=== PATIENT | male | born 1945 | race Caucasian/White ===

== ENCOUNTER 2016-12-15 09:03 | Inpatient (IN) | payer MEDICARE, MEDICAID ==
[~2016-12-15] VITALS: Ht 172.7 cm; Wt 94.0 kg
[2016-12-15] VITALS (19 sets, daily range): BP systolic 163–190; BP diastolic 54–91; PULSE 84–90; RESP 18–20; TEMP 97.8; Ht 172.7 cm; Wt 94.0 kg
[~2016-12-15 09:03] MED LIST: AMLO5TAB4 PO; AZIT250T94 PO; CARV6.2579 PO; CNC30T PO; GABA100C14 PO; GLIM4TAB PO; LANT3I SC; LYRI100 PO; NOVO3I SC; OLAN5TAB5 PO; OMEP20CA16 PO; SEVE800T7 PO; TRAM-40 PO; ZOC20 PO; ZOLP5TAB6 PO
[2016-12-15] MEDS ORDERED: ONDANSETRON 4 MG INJ IV STA (09:56)
[2016-12-15] MEDS ORDERED: HYDROmorphONE 1 MG/ML SYG IV STA (09:56)
[2016-12-15 10:10] LABS: ADD SCAN DIFF NO
[2016-12-15 10:13] LABS: ABNORMAL IP MESSAGE 1; BASOPHILS % 0.1 % (0.0-2.0); EOSINOPHILS % 0.1 % (0.0-7.0); HEMATOCRIT 32.2 % (42.0-52.0); HEMOGLOBIN 10.6 g/dl (14.0-18.0); LYMPHOCYTES # 0.6 10^3/ul (0.8-2.9); LYMPHOCYTES % 4.8 % (15.0-51.0); MEAN CORPUSCULAR HEMOGLOBIN 31.6 pg (29.0-33.0); MEAN CORPUSCULAR HGB CONC 32.9 g/dl (32.0-37.0); MEAN CORPUSCULAR VOLUME 96.1 fl (82.0-101.0); MEAN PLATELET VOLUME 10.3 fl (7.4-10.4); MONOCYTE # 0.7 10^3/ul (0.3-0.9); NEUTROPHIL # 10.4 10^3/ul (1.6-7.5); NEUTROPHILS % 88.5 % (39.0-77.0); PLATELET COUNT 215 10^3/UL (140-415); RED BLOOD COUNT 3.35 10^6/ul (4.70-6.10); RED CELL DISTRIBUTION WIDTH 13.1 % (11.5-14.5); WHITE BLOOD COUNT 11.7 10^3/ul (4.8-10.8)
[2016-12-15 10:22] LABS: INR 1.05; PROTIME 13.7 Sec (12.2-14.2); PT RATIO 1.1
[2016-12-15 10:23] LABS: PARTIAL THROMBOPLASTIN TIME 30.7 Sec (25.0-35.0)
[2016-12-15 10:24] LABS: CREATININE 12.54 mg/dl (0.61-1.24)
[2016-12-15 10:25] LABS: CALCIUM 9.4 mg/dl (8.4-10.2); MAGNESIUM 3.1 mg/dl (1.7-2.5); PHOSPHORUS 4.7 mg/dl (2.5-4.9)
[2016-12-15 10:26] LABS: POTASSIUM 7.2 mmol/L (3.5-5.1)
--- NOTE | 2016-12-15 10:26 | RADRPT ---
PROCEDURE: XR Chest. CLINICAL INDICATION: Abdomen pain. Renal failure. TECHNIQUE: Single frontal view. COMPARISON: 09/03/2016. FINDINGS: The lungs are clear. The heart is enlarged. There is calcification in the aorta consistent with atherosclerosis. There is no pleural effusion. There is no pneumothorax. IMPRESSION: 1. Cardiomegaly and atherosclerosis. 2. Clear lungs. 3. No change from 09/03/2016. RPTAT: QQ .Chai Greenberg MD, MD Date Time Electronically viewed and signed by .Chai Greenberg MD, MD on 12/15/2016 10:25 .R/
[2016-12-15] MEDS ORDERED: NA BICARBONATE 8.4% 50 ML SYG IV STA (10:28)
[2016-12-15] MEDS ORDERED: CA GLUCONATE (GM) 10% 10ML INJ IV STA (10:28)
[2016-12-15] MEDS ORDERED: DEXTROSE 50% 50 ML SYRINGE IV STA (10:28)
[2016-12-15] MEDS ORDERED: NA POLYST SULFON 15 GM/60 ML BTL PO STA (10:28)
[2016-12-15] MEDS ORDERED: INSULIN REGULAR, HUMAN 100 UNIT/1 ML 3ML VIAL IV STA (10:28)
[2016-12-15] MEDS ORDERED: ONDANSETRON 4 MG INJ IV PRN ×2 (11:00→20:00)
[2016-12-15] MEDS ORDERED: ACETAMINOPHEN 325 MG TAB PO PRN ×2 (11:00→20:00)
--- NOTE | 2016-12-15 11:57 | ERA ---
ER Documentation Chief Complaint Date/Time DATE: 12/15/16 TIME: 11:54 Chief Complaint GEN LEG WEAKNESS FOR A FEW WEEKS. SENT BY DR FIORE FOR ADMISSION HPI 71-year-old male history of end-stage renal disease on dialysis. Last dialysis was Saturday. The patient presents with multiple weeks if not months of bilateral lower cavity cramping during dialysis. He states that his primary care physician sent him in for hospitalization. The patient could not receive dialysis today. Mild shortness of breath. No chest pain, no pleuritic pain. ROS All systems reviewed and are negative except as per history of present illness. Medications Home Meds Reported Medications Sevelamer Carbonate* (Renvela*) 800 Mg Tablet, 0.8 GM PO WITH MEALS, TAB 07/25/16 Pregabalin* (Lyrica*) 100 Mg Capsule, 100 MG PO DAILY, CAP 07/25/16 Cinacalcet* (Sensipar*) 30 Mg Tab, 30 MG PO DAILY, TAB 07/25/16 Insulin Aspart* (Novolog Insulin Pen*) 100 Unit/Ml Soln, 0 SC .SLIDING SCALE AC , EA WITH MEALS 07/25/16 Insulin Glargine* (Lantus*) 100 Unit/Ml Soln, 0 SC DAILY, #1 VIAL SLIDING SCALE SOMETIMES TWICE A DAY 07/25/16 Omeprazole* (Omeprazole*) 20 Mg Capsule.dr, 20 MG PO BID, #60 CAP 07/25/16 Glimepiride* (Glimepiride*) 4 Mg Tablet, 4 MG PO WITH BREAKFAST DINNE, TAB 07/25/16 Tramadol Hcl* (Ultram*) 50 Mg Tablet, 50 MG PO BID Y for PAIN, TAB 07/25/16 Gabapentin* (Gabapentin*) 100 Mg Capsule, 100 MG PO DAILY, #90 CAP 07/25/16 Zolpidem Tartrate* (Zolpidem Tartrate*) 5 Mg Tablet, 5 MG PO QHS Y for INSOMNIA , #30 TAB 07/25/16 Amlodipine Besylate* (Norvasc*) 5 Mg Tablet, 5 MG PO DAILY, TAB 07/25/16 Carvedilol* (Carvedilol*) 6.25 Mg Tablet, 6.25 MG PO QAM, TAB 04/12/15 Olanzapine* (Zyprexa*) 5 Mg Tablet, 5 MG PO DAILY, TAB 06/14/14 Simvastatin (Simvastatin) 20 Mg Tablet, 20 MG PO DAILY 06/23/11 Discontinued Scripts Azithromycin* (Zithromax*) 250 Mg Tablet, 250 MG PO DAILY for 4 Days, TAB Prov:CHRISTIANA BAIG MD 09/03/16 Allergies Allergies: Coded Allergies: ibuprofen (Verified Allergy, Unknown, 08/20/16) iodine (Verified Allergy, Unknown, 08/20/16) PMhx/Soc History of Surgery: No (Left fistula placement, Left pelvis reconstruction, Appendectomy) Anesthesia Reaction: No Hx Neurological Disorder: No Hx Respiratory Disorders: Yes (Asthma) Hx Cardiac Disorders: Yes (Hypertension) Hx Psychiatric Problems: No Hx Miscellaneous Medical Probl: Yes (DM Type 2) Hx Alcohol Use: No Hx Substance Use: No Hx Tobacco Use: No Smoking Status: Never smoker FmHx Family History: No diabetes Physical Exam Vitals Vital Signs Date Time Temp Pulse Resp B/P Pulse Ox O2 Delivery O2 Flow Rate FiO2 12/15/16 11:45 97.8 86 16 171/86 100 Room Air 12/15/16 11:19 97.7 83 16 183/82 100 Room Air 12/15/16 10:02 97.6 86 18 172/87 100 Room Air 12/15/16 09:11 98.8 89 20 191/81 98 Physical Exam General: Well developed, well nourished, no acute distress Head: Normocephalic, atraumatic. Eyes: Pupils equally reactive, EOM intact ENT: Moist mucous membranes Neck: Supple, no lymphadenopathy Respiratory: Lungs clear bilaterally, no distress Cardiovascular: RRR, no murmurs, rubs, or gallops Abdominal: Soft, non-tender, non-distended, no peritoneal signs : Deferred MSK: No edema, no unilateral swelling, 5/5 strength, left upper extremity AV fistula with good bruit and thrill Neurologic: Alert and oriented, moving all extremities, normal speech, no focal weakness, no cerebellar signs Skin: No rash Psych: Normal mood Result Diagram: 12/15/16 1005 12/15/16 1005 Results 24 hrs Laboratory Tests Test 12/15/16 10:05 Activated Partial Thromboplast Time 30.7Sec Anion Gap 27 Basophils # 0.010^3/ul Basophils % 0.1% Blood Urea Nitrogen 104mg/dl Calcium Level 9.4mg/dl Carbon Dioxide Level 23mmol/L Chloride Level 96mmol/L Creatinine 12.54mg/dl Eosinophils # 0.010^3/ul Eosinophils % 0.1% Glucose Level 184mg/dl Hematocrit 32.2% Hemoglobin 10.6g/dl INR International Normalized Ratio 1.05 Lymphocytes # 0.610^3/ul Lymphocytes % 4.8% Magnesium Level 3.1mg/dl Mean Corpuscular Hemoglobin 31.6pg Mean Corpuscular Hemoglobin Concent 32.9g/dl Mean Corpuscular Volume 96.1fl Mean Platelet Volume 10.3fl Monocytes # 0.710^3/ul Monocytes % 6.0% Neutrophils # 10.410^3/ul Neutrophils % 88.5% Nucleated Red Blood Cells # 0.010^3/ul Nucleated Red Blood Cells % 0.0/100WBC Phosphorus Level 4.7mg/dl Platelet Count 71984^3/UL Potassium Level 7.2mmol/L Prothrombin Time 13.7Sec Prothrombin Time Ratio 1.1 Red Blood Count 3.3510^6/ul Red Cell Distribution Width 13.1% Sodium Level 139mmol/L White Blood Count 11.710^3/ul Current Medications Medications (Trade) Dose Ordered Sig/Nicole Route PRN Reason Start Time Stop Time Status Last Admin Dose Admin Hydromorphone HCl (Dilaudid) 1 mg ONCE STAT IV 12/15/16 09:56 12/15/16 09:58 DC 12/15/16 10:25 Ondansetron HCl (Zofran Inj) 4 mg ONCE STAT IV 12/15/16 09:56 12/15/16 09:58 DC 12/15/16 10:25 Insulin Human Regular (Humulin R) 10 unit ONCE STAT IV 12/15/16 10:28 12/15/16 10:29 DC 12/15/16 10:50 Dextrose (D50w Syringe) 50 ml ONCE STAT IV 12/15/16 10:28 12/15/16 10:29 DC 12/15/16 10:48 Sodium Polystyrene Sulfonate (Kayexalate) 30 gm ONCE STAT PO 12/15/16 10:28 12/15/16 10:29 DC 12/15/16 10:48 Sodium Bicarbonate (Na Bicarb 8.4% Syg) 50 ml ONCE STAT IV 12/15/16 10:28 12/15/16 10:29 DC 12/15/16 10:48 Calcium Gluconate (Ca Gluc) 1 gm ONCE STAT IV 12/15/16 10:28 12/15/16 10:29 DC 12/15/16 10:48 Ondansetron HCl (Zofran Inj) 4 mg ER BRIDGE PRN IV NAUSEA AND/OR VOMITING 12/15/16 11:00 12/16/16 10:59 Acetaminophen (Tylenol Tab) 650 mg ER BRIDGE PRN PO MILD PAIN/FEVER 12/15/16 11:00 12/16/16 10:59 Procedures/MDM EKG, MONITORS, & DIAGNOSTIC IMAGING: EKG: I reviewed and interpreted a 12-lead EKG. Rhythm: Normal sinus rhythm Ectopy: None Intervals: No abnormalities ST segments: No elevations or depressions T waves: Peaked T waves Chest x-ray: I reviewed and interpreted a 1 view of the chest Mediastinum: No enlargement Cardiac silhouette: No cardiomegaly Airspace: Clear lung elam bilaterally without evidence of pneumothorax Bones: No evidence of fracture LAB INTERPRETATION: Uremia, hyperkalemia MEDICAL DECISION MAKING: The patient presents with lower extremity cramping. Cramping is likely secondary to electrolyte and fluid shifts. No evidence of DVT or acute vascular occlusion. Leg pain appears to be chronic. Bigger concern is that the patient has missed dialysis for several days. Strong concern for possible hyperkalemia. No evidence of overt volume overload. ER COURSE: Hyperkalemia with EKG changes are noted on laboratory testing and diagnostic imaging. Patient was given Kayexalate, insulin, dextrose, bicarb, calcium. Patient continues to be resting comfortably but requires emergent dialysis. I spoke to the patient's hod carrier who is currently arranging for that. Patient was given pain medication for leg pain. I kept the patient and/or family informed of laboratory and diagnostic imaging results throughout the emergency room course. DISPOSITION PLAN: Telemetry admission for management of hyperkalemia CONSULTATION: Accepting care team and consultations: I discussed the current laboratory data, diagnostic imaging and emergency care provided. Admitting team: Dr. Jose Fiore Admitting team indication: Insurance directed Critical Care Note: Total time: 42 minutes Indication/Organ System Threat: Hyperkalemia with EKG changes I spent the above amount of critical care time with the patient, not including billable procedures. This included chart review, consultations, repeat bedside evaluations, and titration of appropriate medications to prevent cardiopulmonary or respiratory collapse. Departure Diagnosis: Primary Impression: Hyperkalemia Additional Impressions: Uremia Leg cramping Qualified Code: R25.2 - Cramp of both lower extremities End stage renal disease on dialysis Condition: PAOLO Sommers MD Dec 15, 2016 11:57
[2016-12-15] MEDS ORDERED: GLUCOSE GEL 15 GRAM TUBE PO PRN ×2 (14:30)
[2016-12-15] MEDS ORDERED: GLUCOSE GEL 15 GRAM TUBE BUCCAL PRN (14:30)
[2016-12-15] MEDS ORDERED: DEXTROSE 50% 50 ML SYRINGE IV PRN ×2 (14:30)
[2016-12-15] MEDS ORDERED: GLUCAGON 1 MG INJ IM PRN (14:30)
[2016-12-15] MEDS: INSULIN ASPART [NOVOLOG] 3 ML PEN SC SCH ×2 (17:55→21:00)
[2016-12-15 18:51] LABS: CK-MB 3.33 ng/ml (0.0-2.4)
[2016-12-15 18:52] LABS: TROPONIN-I 0.04 ng/ml (0.00-0.12)
--- NOTE | 2016-12-15 19:31 | QN ---
Documentation Comment [id number] DAWOOD DAHL MD Dec 15, 2016 19:31
[2016-12-15] MEDS ORDERED: NACL 0.9% 3 ML SYG IV SCH (20:00)
[2016-12-15] MEDS ORDERED: DOCUSATE SODIUM 100 MG CAP PO PRN (20:00)
[2016-12-15] MEDS ORDERED: traMADol 50 MG TAB PO PRN (20:00)
[2016-12-15] MEDS: HYDROCODONE/APAP (5/325) TAB PO PRN (20:56)
--- NOTE | 2016-12-15 23:02 | CONS ---
Date/Time of Note Date/Time of Note DATE: 12/15/16 TIME: 22:44 Assessment/Plan Assessment/Plan Chief Complaint/Hosp Course 71 year old M with history of ESRD on dialysis, chronic LE pain and severe cramping post dialysis. -will pursue neuropathy work up B12, TSH, HBA1C -CTH w/o contrast for truncal ataxia -continue on Lyrica 100 mg daily, on days of dialysis give Lyrica 100 mg after dialysis as symptoms are worse at this time gabapentin 100 mg likely not benefiting him as the dose is too low, if unable to tolerate Lyrica will titrate up gabapentin -may benefit from outpatient EMG/NCV studies to further characterize neuropathy -PT evaluation for a walker, gait and balance training Problems: Consultation Date/Type/Reason Admit Date/Time Dec 15, 2016 at 12:39 Date of Consultation: Dec 15, 2016 Type of Consultation: Neurology Reason for Consultation LE cramping r/o neuropathy Referring Provider: DAWOOD DAHL MD Hx of Present Illness 71 year old M with history of ESRD on dialysis, uncontrolled diabetes, chronic LE weakness with recent worsening admitted with complaint of severe cramping after dialysis, frequent falls an diffuse weakness. He states cramping is severe every time he has dialysis, pain is mostly location in the thigh region on the right worse than the left. He denies any numbness or pain in his feet. In the past he has attempted Lyrica which alleviated the cramping and pain sensation, however he was unable to tolerate a dose of 150 mg daily due to adverse side effects and described cognitive issues with this dose. Per records he has been on gabapentin low dose 100 mg in the past, patient denies this, unclear compliance with neuropathic meds. He has never received an outpatient EMG/NCV study to further characterize neuropathy. He ambulates with a cane and is requesting a more supportive assistive device due to frequent fall due to severe loss of balance. pain in thighs difficulty ambulating loss of balance difficulty sleeping Respiratory: shortness of breath Gastrointestinal: no complaints Genitourinary: no complaints Musculoskeletal: bone/joint pain Past Medical History per HPI Social History Alcohol Use: none Smoking Status: Never smoker Drug Use: none Exam/Review of Systems Vital Signs Vitals Vital Signs Date Time Temp Pulse Resp B/P Pulse Ox O2 Delivery O2 Flow Rate FiO2 12/15/16 20:35 85 12/15/16 19:28 97.6 18 163/84 99 12/15/16 12:29 Room Air Exam awake and alert appears stated age NAD following commands no aphasia no neglect CN: BRET , VFF, EOMI no nystagmus no facial asymmetry palate upgoing uvula midline scm/trap intact, tongue midline Motor: strength 5/5 throughout some limitation in hip flexion and extension due to reported pain when full effort provided strength is full, tremulous in both UE Tone wnl Sensory increased to PP sensation, absent vibratory sensation at toes and knee intact LT sensory Reflexes 1+ UE absent KJ absent AJ toes downgoing Coordination no FTN ataxia however when eyes are closed he has significant truncal ataxia loss of proprioception Constitutional: alert, oriented, well developed Psych: anxiety Head: atraumatic, normocephalic Results Result Diagram: 12/15/16 1005 12/15/16 1818 Results 24 hrs Laboratory Tests Test 12/15/16 10:05 12/15/16 17:20 12/15/16 18:05 12/15/16 18:18 Activated Partial Thromboplast Time 30.7 Anion Gap 27 H Basophils # 0.0 Basophils % 0.1 Blood Urea Nitrogen 104 H Calcium Level 9.4 Carbon Dioxide Level 23 Chloride Level 96 L Creatinine 12.54 H Eosinophils # 0.0 Eosinophils % 0.1 Glucose Level 184 Hematocrit 32.2 L Hemoglobin 10.6 L INR International Normalized Ratio 1.05 Lymphocytes # 0.6 L Lymphocytes % 4.8 L Magnesium Level 3.1 H Mean Corpuscular Hemoglobin 31.6 Mean Corpuscular Hemoglobin Concent 32.9 Mean Corpuscular Volume 96.1 Mean Platelet Volume 10.3 Monocytes # 0.7 Monocytes % 6.0 Neutrophils # 10.4 H Neutrophils % 88.5 H Nucleated Red Blood Cells # 0.0 Nucleated Red Blood Cells % 0.0 Phosphorus Level 4.7 Platelet Count 215 Potassium Level 7.2 *H 5.0 # Prothrombin Time 13.7 Prothrombin Time Ratio 1.1 Red Blood Count 3.35 L Red Cell Distribution Width 13.1 Sodium Level 139 White Blood Count 11.7 #H Bedside Glucose 59 L 90 Creatine Kinase 493 H Creatine Kinase Index 0.7 Creatinine Kinase MB (Mass) 3.33 H Troponin I 0.040 Test 12/15/16 18:41 12/15/16 21:00 Bedside Glucose 149 180 Medications Medications Current Medications Diagnostic Test (Pha) (Accucheck) 1 ea 02 XX ; Start 12/16/16 at 02:00 Pantoprazole (Protonix Iv) 40 mg DAILY@06 IV ; Start 12/16/16 at 06:00 Miscellaneous Information 1 ea NOTE XX ; Start 12/15/16 at 14:30 Glucose (Glutose) 15 gm Q15M PRN PO DECREASED GLUCOSE; Start 12/15/16 at 14:30 Glucose (Glutose) 22.5 gm Q15M PRN PO DECREASED GLUCOSE; Start 12/15/16 at 14: 30 Dextrose (D50w Syringe) 25 ml Q15M PRN IV DECREASED GLUCOSE; Start 12/15/16 at 14:30 Dextrose (D50w Syringe) 50 ml Q15M PRN IV DECREASED GLUCOSE; Start 12/15/16 at 14:30 Glucagon (Glucagen) 1 mg Q15M PRN IM DECREASED GLUCOSE; Start 12/15/16 at 14:30 Glucose (Glutose) 15 gm Q15M PRN BUCCAL DECREASED GLUCOSE; Start 12/15/16 at 14 :30 Carvedilol (Coreg) 6.25 mg BID PO Last administered on 12/15/16t 20:52; Admin Dose 6.25 MG; Start 12/15/16 at 21:00 Amlodipine Besylate (Norvasc) 5 mg DAILY PO ; Start 12/16/16 at 09:00 Cinacalcet (Sensipar) 30 mg DAILY PO ; Start 12/16/16 at 09:00 Gabapentin (Neurontin) 100 mg DAILY PO ; Start 12/16/16 at 09:00 Olanzapine (Zyprexa) 5 mg DAILY PO ; Start 12/16/16 at 09:00 Tramadol HCl (Ultram) 50 mg BID PRN PO PAIN; Start 12/15/16 at 20:00 Zolpidem Tartrate (Ambien) 5 mg QHS PRN PO INSOMNIA; Start 12/15/16 at 20:00 Ondansetron HCl (Zofran Inj) 4 mg Q6H PRN IV NAUSEA AND/OR VOMITING; Start 08/23 at 20:00 Acetaminophen (Tylenol Tab) 650 mg Q6H PRN PO PAIN LEVEL 1-3 OR FEVER; Start at 20:00 Acetaminophen/ Hydrocodone Bitart (Wendell (5/325)) 1 tab Q6H PRN PO MODERATE PAIN LEVEL 4-6 Last administered on 12/15/16t 20:56; Admin Dose 1 TAB; Start 08/23 at 20:00 Docusate Sodium (Colace) 100 mg Q12H PRN PO CONSTIPATION; Start 12/15/16 at 20: 00 Pregabalin (Lyrica) 100 mg DAILY PO ; Start 12/16/16 at 09:00 DENYS WORTHY MD Dec 15, 2016 22:54
[2016-12-16] VITALS (12 sets, daily range): BP systolic 128–166; BP diastolic 64–80; PULSE 71–82; RESP 19–20
[2016-12-16] MEDS: ZOLPIDEM 5 MG TAB PO PRN (00:38)
[2016-12-16 01:49] LABS: TROPONIN-I 0.081 ng/ml (0.00-0.12)
[2016-12-16] MEDS: ACCUCHECK XX SCH (02:00)
[2016-12-16 03:00] LABS: CK-MB 2.83 ng/ml (0.0-2.4)
--- NOTE | 2016-12-16 04:22 | CONS ---
DATE OF ADMISSION: 12/15/2016 DATE OF CONSULTATION: 12/15/2016 REASON FOR CONSULTATION: Shortness of breath, assess for congestive heart failure as well as abnorm al electrocardiogram, assess for acute coronary syndrome. REQUESTING PHYSICIAN: Dr. Jose Dahl. HISTORY OF PRESENT ILLNESS: Mr. Armand Irene is a very pleasant 71-year-old male with a history of hy pertension, diabetes mellitus, end-stage renal disease, dyslipidemia who initially presented with co mplaints of shortness of breath, generalized weakness. Upon arrival in the emergency department, te mperature 98.8, blood pressure 191/81, pulse 89, respiratory rate 20, saturating 98%. The patient's labs revealed a white blood cell count 11.7, hemoglobin 10.6, platelet count of 215. Sodium 139, p otassium 7.2, creatinine 12.5, BUN 104, magnesium 3.1. INR 1.0. The patient underwent a chest x-ra y revealing cardiomegaly, clear lungs. The patient's electrocardiogram was sinus rhythm and a rate of 82 with right axis deviation and inferior T-wave flattening. The patient was subsequently admitt ed to the floor. Since admit to floor, has undergone hemodialysis with improvement in shortness of breath. PAST MEDICAL HISTORY: As above in HPI. MEDICATIONS CURRENTLY IN HOSPITAL: 1. Protonix 40 mg IV daily. 2. Insulin sliding scale. ALLERGIES: 1. IBUPROFEN. 2. IODINE. SOCIAL HISTORY: No tobacco, ETOH or illicit drug use. FAMILY HISTORY: No history of sudden cardiac or early CAD. REVIEW OF SYSTEMS: As above in HPI. CONSTITUTIONAL: No fevers, chills. PULMONARY: Shortness of breath. CARDIOVASCULAR: Abnormal electrocardiogram, shortness of breath. GASTROINTESTINAL: No vomiting. GENITOURINARY: End-stage renal disease. PSYCHIATRIC: The patient denies depression. NEUROLOGIC: No documented history of CVA. ENDOCRINE: Diabetes mellitus. PHYSICAL EXAMINATION: VITAL SIGNS: Temperature 98, blood pressure 176/80, pulse 88, respiratory 18, sat 98%. GENERAL: Patient is alert, awake, in no acute distress. NECK: JVP approximately 9 cm water. CHEST: Fair air movement throughout. HEART: Regular rate and rhythm. Normal S1, S2, I/ systolic murmur, nondisplaced PMI. ABDOMEN: Positive bowel sounds, soft. EXTREMITIES: Trace edema, 1+ pulses bilaterally posterior tibial. LABORATORY DATA: As above in HPI. No further labs for my review at this time. IMAGING STUDIES: As above in HPI. No further imaging studies for my review at this time. ECG: As above in HPI. No further electrocardiograms for my review at this time. IMPRESSION: 1. Abnormal electrocardiogram, assess for acute coronary syndrome. 2. Shortness of breath, assess for congestive heart failure. 3. Hypertension, uncontrolled. 4. Dyslipidemia. 5. End-stage renal disease on hemodialysis. 6. Generalized weakness, now improved, likely secondary to hyperkalemia. 7. Hyperkalemia, status post hemodialysis. 8. Leukocytosis. 9. Anemia. RECOMMENDATIONS: 1. At this time would maintain patient on telemetry monitoring to follow rhythm and rate closely. 2. Will complete a rule out for myocardial infarction to ensure that the patient's EKG abnormalitie s are chronic in nature and not due to any recent acute coronary syndrome such as acute myocardial i nfarction thus will resume the patient's baseline antihypertensives with carvedilol and Norvasc. 3. Check a 2D echo to further assess patient's ejection fraction, wall motion and any major valve a bnormalities. 4. Check fasting lipid panel for general risk stratification and adjust the patient's statin therap y as necessary. Recheck the patient's potassium post-hemodialysis to ensure that it appropriately d own trended. 5. Continue patient's insulin sliding scale for control of diabetes and follow blood sugars closely . Thank you for allowing me to take part in the care of this patient. I will continue to follow along very closely with you with further recommendations to be made as the patient progresses through his inpatient hospital clinical course. Dictated By: MY PATEL/EDEL Conf#: [id number] DID#: [id number] CC: JOSE DAHL MD;*EndCC*
--- NOTE | 2016-12-16 04:51 | HP ---
DATE OF ADMISSION: 12/15/2016 HISTORY OF PRESENT ILLNESS: The patient is a 71-year-old male with history of hypertension, history of diabetes mellitus, dyslipidemia, neuropathy, chronic leg edema, and noncompliance with his medic ation who presented to this hospital complaining of short of breath, missed dialysis, hyperkalemia. The patient was treated medically for the patient's potassium of 7.2, underwent hemodialysis, and i s being admitted for further management. Denies any chest pain. PAST MEDICAL HISTORY: Positive for hypertension, diabetes mellitus, dyslipidemia, history of memory impairment. ALLERGY HISTORY: 1. IBUPROFEN. 2. IODINE. SOCIAL HISTORY: Negative. FAMILY HISTORY: Noncontributory. MEDICATION HISTORY: The patient is on 1. Amlodipine. 2. Coreg. 3. Sensipar. 4. Gabapentin. 5. Amaryl. 6. Insulin. 7. Lantus. 8. Zyprexa. 9. Omeprazole. 10. Pregabalin. 11. Renvela. 12. Simvastatin. 13. Tramadol 14. Ambien. REVIEW OF SYSTEMS HEENT: Unremarkable. RESPIRATORY: Shortness of breath. CARDIOVASCULAR: No chest pain. No palpitations. ABDOMEN: ____ extremity swelling and also neuropathic pain, restlessness. CENTRAL NERVOUS SYSTEM: Unremarkable. PHYSICAL EXAMINATION: GENERAL: The patient is awake and alert. VITAL SIGNS: Pulse 80, blood pressure 176/80. HEAD: Atraumatic, normocephalic. Pupils equal, reactive to light. NECK: Supple, no JVD. LUNGS: Clear. CARDIOVASCULAR: S1, S2 are normal. ABDOMEN: Soft, nontender. Bowel sounds present. No palpable mass. EXTREMITIES: There is no cyanosis, clubbing. Edema positive. CENTRAL NERVOUS SYSTEM: The patient is awake, alert with no focal deficit. LABORATORY DATA: As mentioned above, potassium 7.2. The patient has WBC 11.7, hematocrit 32.2, allie telet count of 205. Chest x-ray shows the patient has cardiomegaly, atherosclerosis, clear lungs. At this point, the patient also had rhythm on the monitor, normal sinus rhythm, nonspecific ST-T dung nges. IMPRESSION: 1. Hyperkalemia. 2. Anasarca. 3. Diabetes mellitus. 4. Hypertension. 5. Anemia. 6. Leukocytosis. 7. Noncompliance with medication and fluid intake. PLAN: To continue home medication, IV. The patient will have hemodialysis, diabetic renal diet, sl iding scale. Orders were done. Dictated By: DAWOOD DAHL MD BS/NTS Conf#: [id number] DID#: [id number]
[2016-12-16] MEDS ORDERED: PANTOPRAZOLE 40 MG INJ IV SCH (06:00)
[2016-12-16 06:05] LABS: ADD SCAN DIFF NO
[2016-12-16 06:07] LABS: BASOPHIL # 0.1 10^3/ul (0.0-0.1); BASOPHILS % 0.7 % (0.0-2.0); EOSINOPHILS # 0.3 10^3/ul (0.0-0.5); EOSINOPHILS % 2.8 % (0.0-7.0); HEMATOCRIT 34.3 % (42.0-52.0); LYMPHOCYTES # 1.4 10^3/ul (0.8-2.9); LYMPHOCYTES % 15.2 % (15.0-51.0); MEAN CORPUSCULAR HEMOGLOBIN 31.3 pg (29.0-33.0); MEAN CORPUSCULAR HGB CONC 32.1 g/dl (32.0-37.0); MEAN CORPUSCULAR VOLUME 97.4 fl (82.0-101.0); MEAN PLATELET VOLUME 10.8 fl (7.4-10.4); MONOCYTE # 0.9 10^3/ul (0.3-0.9); MONOCYTES % 10.1 % (0.0-11.0); NEUTROPHIL # 6.5 10^3/ul (1.6-7.5); NEUTROPHILS % 70.7 % (39.0-77.0); PLATELET COUNT 259 10^3/UL (140-415); RED BLOOD COUNT 3.52 10^6/ul (4.70-6.10); RED CELL DISTRIBUTION WIDTH 13.2 % (11.5-14.5); WHITE BLOOD COUNT 9.1 10^3/ul (4.8-10.8)
[2016-12-16 06:19] LABS: ALBUMIN 4.4 g/dl (3.3-4.9)
[2016-12-16 06:21] LABS: CREATININE 9.16 mg/dl (0.61-1.24)
[2016-12-16 06:22] LABS: ALBUMIN/GLOBULIN RATIO 1.51; BILIRUBIN,INDIRECT 0.3 mg/dl (0-1.1); BILIRUBIN,TOTAL 0.3 mg/dl (0.2-1.3); CALCIUM 8.8 mg/dl (8.4-10.2); TOTAL PROTEIN 7.3 g/dl (6.1-8.1)
[2016-12-16 06:57] LABS: CHOL/HDL RATIO 2.6 RATIO
[2016-12-16] MEDS: INSULIN ASPART [NOVOLOG] 3 ML PEN SC SCH ×4 (07:55→20:16)
[2016-12-16] MEDS: CINACALCET 30 MG TAB PO SCH (08:27)
[2016-12-16] MEDS: SEVELAMER CARBONATE 0.8 GM PKT PO SCH ×3 (08:27→17:57)
[2016-12-16] MEDS: OLANZAPINE 5 MG TAB PO SCH (08:28)
[2016-12-16] MEDS ORDERED: AMLODIPINE 5 MG TAB PO SCH ×2 (09:00)
[2016-12-16] MEDS ORDERED: PREGABALIN 100 MG CAP PO SCH (09:00)
[2016-12-16] MEDS ORDERED: PREGABALIN 25 MG CAP PO SCH (09:00)
[2016-12-16] MEDS ORDERED: GABAPENTIN 100 MG CAP PO SCH (09:00)
--- NOTE | 2016-12-16 10:12 | RADRPT ---
PROCEDURE: CT Brain without. CLINICAL INDICATION: Ataxia, frequent falls, diffuse weakness. TECHNIQUE: A CT of the brain was performed on multidetector high-resolution CT scanner utilizing a xial sections from the skull base through the vertex without contrast. The scan was reviewed in sof t tissue brain and high frequency resolution bone algorithm windows. Images were reviewed on a high -resolution PACS workstation. One or more the following does reduction techniques were utilized: Aut omated exposure control, adjustment of the mA/ or kV according to patient's size, or use of iterativ e reconstruction technique. The exam CTDI = 44.77 mGy and the DLP = 720.23 mGy-cm. COMPARISON: Brain CT 04/12/2015. FINDINGS: The ventricles and sulci are mildly prominent indicative of volume loss. There is no intracranial he morrhage, mass effect or midline shift. No abnormal intra-axial or extra-axial fluid collections are seen. The parnell/white matter differentiation is well preserved. There are mild scattered foci of hypoattenuation in the periventricular, deep, and subcortical white matter, which are nonspecific in etiology but likely reflect chronic small vessel ischemic changes. There are mild intracranial vascular calcifications consistent with atherosclerosis. The visualized paranasal sinuses demonstrate near complete opacification of left posterior ethmoid air cells with associated fluid level. The mastoid air cells are essentially clear. There is thinning of bilateral lens indicative of prior lens replacement. Left parietal scalp swelling is noted without underlying skull fracture. IMPRESSION: 1. No acute intracranial hemorrhage, transcortical infarction or mass effect. 2. Mild intracranial atherosclerosis and chronic small vessel ischemic changes. 3. Mild cerebral and cerebellar volume loss. 4. Near complete opacification of left posterior ethmoid air cells with slight interval progression and associated fluid level. 5. Left parietal scalp swelling is noted without underlying skull fracture. RPTAT: PP .Shannon Price MD, MD Date Time Electronically viewed and signed by .Shannon Price MD, MD on 12/16/2016 10:12 .N/
--- NOTE | 2016-12-16 15:19 | CONS ---
Date/Time of Note Date/Time of Note DATE: 12/16/16 TIME: 15:15 Assessment/Plan Assessment/Plan Chief Complaint/Hosp Course IMPRESSION: 1. Abnormal electrocardiogram, assess for acute coronary syndrome.-negative troponin x 2 2. Shortness of breath, assess for congestive heart failure. 3. Hypertension, remains uncontrolled. 4. Dyslipidemia. 5. End-stage renal disease on hemodialysis. 6. Generalized weakness, now improved, likely secondary to hyperkalemia. 7. Hyperkalemia, status post hemodialysis. 8. Leukocytosis. 9. Anemia. Recc: -Tele -Complete marguerite with final troponin -Uptitrate norvasc and continue coreg to improve BP control -HD for volume removal -Will f/u echo to assess EF Problems: Consultation Date/Type/Reason Admit Date/Time Dec 15, 2016 at 12:39 Initial Consult Date 12/15/16 Type of Consultation: Cardiology Reason for Consultation CHF/HTN Referring Provider: DAWOOD DAHL MD Exam/Review of Systems Vital Signs Vitals Vital Signs Date Time Temp Pulse Resp B/P Pulse Ox O2 Delivery O2 Flow Rate FiO2 12/16/16 12:14 81 12/16/16 11:05 98.2 19 162/80 97 12/16/16 04:45 Room Air Intake and Output 12/15/16 12/15/16 12/16/16 15:00 23:00 07:00 Intake Total 500 ml Output Total 3500 ml Balance -3000 ml Exam Review of Systems: CONSTITUTIONAL: No fevers, chills. PULMONARY: mild sob CARDIOVASCULAR: No chest pain/palpitations GASTROINTESTINAL: No nausea/vomiting. GENITOURINARY: No hematuria/dysuria. MUSCULOSKELETAL: No myagias/arthalgias. PSYCHIATRIC: The patient denies depression. NEUROLOGIC: No weakness Constitutional: alert Psych: no complaints Head: normocephalic ENMT: mucosa pink and moist Neck: jvd (9 cm water), supple Respiratory: diminished breath sounds (at bases/B) Cardiovascular: regular rate and rhythm Gastrointestinal: non-tender, soft Musculoskeletal: muscle tone (normal) Extremities: edema (trace/B) Neurological: other (No focal deficits) Results Result Diagram: 12/16/16 0515 12/16/16 0515 Results 24 hrs Laboratory Tests Test 12/15/16 17:20 12/15/16 18:05 12/15/16 18:18 12/15/16 18:41 Bedside Glucose 59 L 90 149 Creatine Kinase 493 H Creatine Kinase Index 0.7 Creatinine Kinase MB (Mass) 3.33 H Potassium Level 5.0 # Troponin I 0.040 Test 12/15/16 21:00 12/16/16 00:23 12/16/16 05:15 12/16/16 07:06 Bedside Glucose 180 52 L Creatine Kinase 475 H Creatine Kinase Index 0.6 Creatinine Kinase MB (Mass) 2.83 H Troponin I 0.081 Alanine Aminotransferase (ALT/SGPT) 30 Albumin 4.4 Albumin/Globulin Ratio 1.51 Alkaline Phosphatase 146 H Anion Gap 24 H Aspartate Amino Transf (AST/SGOT) 26 Basophils # 0.1 Basophils % 0.7 Blood Urea Nitrogen 66 #H Calcium Level 8.8 Carbon Dioxide Level 29 Chloride Level 95 L Cholesterol Level 96 L Cholesterol/HDL Ratio 2.6 Creatinine 9.16 #H Direct Bilirubin 0.00 Eosinophils # 0.3 Eosinophils % 2.8 Globulin 2.90 Glucose Level 39 #*L HDL Cholesterol 36 Hematocrit 34.3 L Hemoglobin 11.0 L Hemoglobin A1c 7.2 H Indirect Bilirubin 0.3 LDL Cholesterol, Calculated 36 Lymphocytes # 1.4 Lymphocytes % 15.2 Mean Corpuscular Hemoglobin 31.3 Mean Corpuscular Hemoglobin Concent 32.1 Mean Corpuscular Volume 97.4 Mean Platelet Volume 10.8 H Monocytes # 0.9 Monocytes % 10.1 Neutrophils # 6.5 Neutrophils % 70.7 Nucleated Red Blood Cells # 0.0 Nucleated Red Blood Cells % 0.0 Platelet Count 259 # Potassium Level 5.0 Red Blood Count 3.52 L Red Cell Distribution Width 13.2 Sodium Level 143 Thyroid Stimulating Hormone (TSH) 5.130 H Total Bilirubin 0.3 Total Protein 7.3 Triglycerides Level 121 Vitamin B12 Level > 1000 H White Blood Count 9.1 # Test 12/16/16 07:28 12/16/16 07:46 12/16/16 08:37 12/16/16 11:25 Bedside Glucose 61 L 72 112 182 Medications Medications Current Medications Diagnostic Test (Pha) (Accucheck) 1 ea 02 XX ; Start 12/16/16 at 02:00 Pantoprazole (Protonix Iv) 40 mg DAILY@06 IV Last administered on 12/16/16t 06: 08; Admin Dose 40 MG; Start 12/16/16 at 06:00 Miscellaneous Information 1 ea NOTE XX ; Start 12/15/16 at 14:30 Glucose (Glutose) 15 gm Q15M PRN PO DECREASED GLUCOSE; Start 12/15/16 at 14:30 Glucose (Glutose) 22.5 gm Q15M PRN PO DECREASED GLUCOSE; Start 12/15/16 at 14: 30 Dextrose (D50w Syringe) 25 ml Q15M PRN IV DECREASED GLUCOSE; Start 12/15/16 at 14:30 Dextrose (D50w Syringe) 50 ml Q15M PRN IV DECREASED GLUCOSE; Start 12/15/16 at 14:30 Glucagon (Glucagen) 1 mg Q15M PRN IM DECREASED GLUCOSE; Start 12/15/16 at 14:30 Glucose (Glutose) 15 gm Q15M PRN BUCCAL DECREASED GLUCOSE; Start 12/15/16 at 14 :30 Carvedilol (Coreg) 6.25 mg BID PO Last administered on 12/16/16 08:28; Admin Dose 6.25 MG; Start 12/15/16 at 21:00 Amlodipine Besylate (Norvasc) 5 mg DAILY PO Last administered on 12/16/16 08: 29; Admin Dose 5 MG; Start 12/16/16 at 09:00 Cinacalcet (Sensipar) 30 mg DAILY PO Last administered on 12/16/16 08:27; Admin Dose 30 MG; Start 12/16/16 at 09:00 Olanzapine (Zyprexa) 5 mg DAILY PO Last administered on 12/16/16 08:28; Admin Dose 5 MG; Start 12/16/16 at 09:00 Tramadol HCl (Ultram) 50 mg BID PRN PO PAIN; Start 12/15/16 at 20:00 Zolpidem Tartrate (Ambien) 5 mg QHS PRN PO INSOMNIA Last administered on 00:38; Admin Dose 5 MG; Start 12/15/16 at 20:00 Ondansetron HCl (Zofran Inj) 4 mg Q6H PRN IV NAUSEA AND/OR VOMITING; Start 08/23 at 20:00 Acetaminophen (Tylenol Tab) 650 mg Q6H PRN PO PAIN LEVEL 1-3 OR FEVER; Start at 20:00 Acetaminophen/ Hydrocodone Bitart ([place] (5/325)) 1 tab Q6H PRN PO MODERATE PAIN LEVEL 4-6 Last administered on 12/15/16t 20:56; Admin Dose 1 TAB; Start 08/23 at 20:00 Docusate Sodium (Colace) 100 mg Q12H PRN PO CONSTIPATION; Start 12/15/16 at 20: 00 MY MENDEZ 12, 2017 15:19
--- NOTE | 2016-12-16 16:09 | RADRPT ---
Echocardiogram Report Patient Name: MICHAEL GUTHRIE Gender: Male Date: 1945 Study Date: 16-Dec-2016 Computer Security Coordinator: [facility] Location: [id number] Ref. Physician: MY ROGERS Quality: Good Procedures: Transthoracic echocardiogram with complete 2D, M-Mode, and doppler examination. Indications: Congential Heart Disease. 2D/M Mode Doppler Measurement Value Normal Ranges Measurement Value Normal Ranges LVIDd 2D 5.3 3.5 - 5.6 cm AV Peak Abdirahman 1.6 m/sec LVIDs 2D 3.5 2.1 - 4.1 cm AV Peak PG 11.0 mmHg FS 2D 34.8 % AI Peak PG 17.0 mmHg LVPWd 2D 1.3 0.6 - 1.1 cm AI Peak Abdirahman 2.1 m/sec IVSd 2D 1.2 0.6 - 1.1 cm AI PHT 613.0 msec IVS/LVPW 2D 1.0 LVOT Peak Abdirahman 1.0 m/sec AoR Diam 2D 3.0 2.0 - 3.7 cm LVOT Peak PG 4.0 mmHg LA/Ao 2D 2 0 - 1 MV E Peak Abdirahman 1.3 m/sec EDV 2D 153.0 cm3 MV A Peak Abdirahman 0.9 m/sec ESV 2D 42.5 cm3 MV E/A 1.5 LA Dimen 2D 4.8 2.3 - 4.0 cm MV Decel Time 204 msec MV E/A 1.5 MR Peak PG 62.0 mmHg MR Peak Abdirahman 3.9 m/sec TR Peak Abdirahman 3.3 m/sec TR Peak PG 43.0 mmHg Findings Left Ventricle: Normal left ventricular systolic function. Normal left ventricular cavity size. Left ventricular wall thickness upper limits of normal. Ejection fraction is visually estimated at 55 %. Tissue Doppler/Mitral Doppler indices are consistent with impaired relaxation (Stage I diastolic dysfunction). Right Ventricle: Normal right ventricular size. Normal right ventricular systolic function. Left Atrium: There is mild enlargement of left atrium. Right Atrium: The right atrium is normal in size. Mitral Valve: Mild mitral leaflet calcification. Moderate to severe mitral valve regurgitation. Aortic Valve: Trileaflet aortic valve. Mild aortic valve regurgitation. Tricuspid Valve: Estimated peak PA systolic pressure 64 mmHg. There is trace to mild tricuspid regurgitation. Pulmonic Valve: Normal pulmonic valve appearance. Pericardium: Normal pericardium with no significant pericardial effusion. Aorta: Normal aortic root. IVC: Dilated IVC with respiratory collapse consistent with elevated right atrial pressure. Conclusions 1.Normal left ventricular systolic function. Normal left ventricular cavity size. Left ventricular wall thickness upper limits of normal. Ejection fraction is visually estimated at 55 %. Tissue Doppler/Mitral Doppler indices are consistent with impaired relaxation (Stage I diastolic dysfunction). 2.There is mild enlargement of left atrium. 3.Mild mitral leaflet calcification. Moderate to severe mitral valve regurgitation. 4.Trileaflet aortic valve. Mild aortic valve regurgitation. 5.Estimated peak PA systolic pressure 64 mmHg. There is trace to mild tricuspid regurgitation. Electronically Signed By: My Rogers 16-Dec-2016 16:08:02 -0700 Patient Name: MICHAEL GUTHRIE Study Date: 16-Dec-2016 [id number]
--- NOTE | 2016-12-16 16:10 | RADRPT ---
Vent Rate: 74 bpm RR Interval: 0 msec CA Interval: 170 msec QRS Duration: 96 msec QT Interval: 432 msec QTC Interval: 479 msec P-R-T [place]: 31 - 107 - 24 degrees Normal sinus rhythm Rightward axis Borderline ECG Electronically Signed By: Greg Rogers [id number]
--- NOTE | 2016-12-16 16:52 | PN ---
Date/Time of Note Date/Time of Note DATE: 12/16/16 TIME: 16:51 Assessment/Plan VTE Prophylaxis VTE Prophylaxis Intervention: other Lines/Catheters IV Catheter Type (from Nrs): Saline Lock Urinary Cath still in place: No Assessment/Plan Chief Complaint/Hosp Course IMPRESSION: 1. Hyperkalemia. 2. Anasarca. 3. Diabetes mellitus. 4. Hypertension. 5. Anemia. 6. Leukocytosis. 7. Noncompliance with medication and fluid intake. PLAN US LEGS HD AM Problems: Subjective 24 Hr Interval Summary Respiratory: no complaints Cardiovascular: no complaints Musculoskeletal: other (LEGS PAIN) Exam/Review of Systems Vital Signs Vitals Vital Signs Date Time Temp Pulse Resp B/P Pulse Ox O2 Delivery O2 Flow Rate FiO2 12/16/16 15:26 97.5 77 19 164/75 98 12/16/16 04:45 Room Air Intake and Output 12/15/16 12/15/16 12/16/16 15:00 23:00 07:00 Intake Total 500 ml Output Total 3500 ml Balance -3000 ml Exam Respiratory: clear to auscultation Cardiovascular: regular rate and rhythm Gastrointestinal: bowel sounds (+), soft Extremities: edema (++) Results Result Diagram: 12/16/16 0515 12/16/16 0515 Results 24 hrs Laboratory Tests Test 12/15/16 17:20 12/15/16 18:05 12/15/16 18:18 12/15/16 18:41 Bedside Glucose 59 L 90 149 Creatine Kinase 493 H Creatine Kinase Index 0.7 Creatinine Kinase MB (Mass) 3.33 H Potassium Level 5.0 # Troponin I 0.040 Test 12/15/16 21:00 12/16/16 00:23 12/16/16 05:15 12/16/16 07:06 Bedside Glucose 180 52 L Creatine Kinase 475 H Creatine Kinase Index 0.6 Creatinine Kinase MB (Mass) 2.83 H Troponin I 0.081 Alanine Aminotransferase (ALT/SGPT) 30 Albumin 4.4 Albumin/Globulin Ratio 1.51 Alkaline Phosphatase 146 H Anion Gap 24 H Aspartate Amino Transf (AST/SGOT) 26 Basophils # 0.1 Basophils % 0.7 Blood Urea Nitrogen 66 #H Calcium Level 8.8 Carbon Dioxide Level 29 Chloride Level 95 L Cholesterol Level 96 L Cholesterol/HDL Ratio 2.6 Creatinine 9.16 #H Direct Bilirubin 0.00 Eosinophils # 0.3 Eosinophils % 2.8 Globulin 2.90 Glucose Level 39 #*L HDL Cholesterol 36 Hematocrit 34.3 L Hemoglobin 11.0 L Hemoglobin A1c 7.2 H Indirect Bilirubin 0.3 LDL Cholesterol, Calculated 36 Lymphocytes # 1.4 Lymphocytes % 15.2 Mean Corpuscular Hemoglobin 31.3 Mean Corpuscular Hemoglobin Concent 32.1 Mean Corpuscular Volume 97.4 Mean Platelet Volume 10.8 H Monocytes # 0.9 Monocytes % 10.1 Neutrophils # 6.5 Neutrophils % 70.7 Nucleated Red Blood Cells # 0.0 Nucleated Red Blood Cells % 0.0 Platelet Count 259 # Potassium Level 5.0 Red Blood Count 3.52 L Red Cell Distribution Width 13.2 Sodium Level 143 Thyroid Stimulating Hormone (TSH) 5.130 H Total Bilirubin 0.3 Total Protein 7.3 Triglycerides Level 121 Vitamin B12 Level > 1000 H White Blood Count 9.1 # Test 12/16/16 07:28 12/16/16 07:46 12/16/16 08:37 12/16/16 11:25 Bedside Glucose 61 L 72 112 182 Medications Medications Current Medications Diagnostic Test (Pha) (Accucheck) 1 ea 02 XX ; Start 12/16/16 at 02:00 Pantoprazole (Protonix Iv) 40 mg DAILY@06 IV Last administered on 12/16/16t 06: 08; Admin Dose 40 MG; Start 12/16/16 at 06:00 Miscellaneous Information 1 ea NOTE XX ; Start 12/15/16 at 14:30 Glucose (Glutose) 15 gm Q15M PRN PO DECREASED GLUCOSE; Start 12/15/16 at 14:30 Glucose (Glutose) 22.5 gm Q15M PRN PO DECREASED GLUCOSE; Start 12/15/16 at 14: 30 Dextrose (D50w Syringe) 25 ml Q15M PRN IV DECREASED GLUCOSE; Start 12/15/16 at 14:30 Dextrose (D50w Syringe) 50 ml Q15M PRN IV DECREASED GLUCOSE; Start 12/15/16 at 14:30 Glucagon (Glucagen) 1 mg Q15M PRN IM DECREASED GLUCOSE; Start 12/15/16 at 14:30 Glucose (Glutose) 15 gm Q15M PRN BUCCAL DECREASED GLUCOSE; Start 12/15/16 at 14 :30 Carvedilol (Coreg) 6.25 mg BID PO Last administered on 12/16/16 08:28; Admin Dose 6.25 MG; Start 12/15/16 at 21:00 Cinacalcet (Sensipar) 30 mg DAILY PO Last administered on 12/16/16 08:27; Admin Dose 30 MG; Start 12/16/16 at 09:00 Olanzapine (Zyprexa) 5 mg DAILY PO Last administered on 12/16/16 08:28; Admin Dose 5 MG; Start 12/16/16 at 09:00 Tramadol HCl (Ultram) 50 mg BID PRN PO PAIN; Start 12/15/16 at 20:00 Zolpidem Tartrate (Ambien) 5 mg QHS PRN PO INSOMNIA Last administered on 00:38; Admin Dose 5 MG; Start 12/15/16 at 20:00 Ondansetron HCl (Zofran Inj) 4 mg Q6H PRN IV NAUSEA AND/OR VOMITING; Start 08/23 at 20:00 Acetaminophen (Tylenol Tab) 650 mg Q6H PRN PO PAIN LEVEL 1-3 OR FEVER; Start at 20:00 Acetaminophen/ Hydrocodone Bitart ([place] (5/325)) 1 tab Q6H PRN PO MODERATE PAIN LEVEL 4-6 Last administered on 12/15/16 20:56; Admin Dose 1 TAB; Start 08/23 at 20:00 Docusate Sodium (Colace) 100 mg Q12H PRN PO CONSTIPATION; Start 12/15/16 at 20: 00 Amlodipine Besylate (Norvasc) 5 mg BID PO ; Start 12/16/16 at 21:00 DAWOOD DAHL MD Dec 16, 2016 16:52
--- NOTE | 2016-12-16 16:55 | CONS ---
Date/Time of Note Date/Time of Note DATE: 12/16/16 TIME: 16:53 Consult Date/Type/Reason Admit Date/Time Dec 15, 2016 at 12:39 Initial Consult Date 12/15/16 Type of Consultation: Neurology Reason for Consultation LE cramping and pain after dialysis Ordering Provider: DAWOOD DAHL MD Subjective episode of hypoglycemia this morning pain is 7/10, agreeing to try lower dose Lyrica 100 mg after dialysis Objective Vital Signs Date Time Temp Pulse Resp B/P Pulse Ox O2 Delivery O2 Flow Rate FiO2 12/16/16 15:26 97.5 77 19 164/75 98 12/16/16 04:45 Room Air Intake and Output 12/15/16 12/15/16 12/16/16 15:00 23:00 07:00 Intake Total 500 ml Output Total 3500 ml Balance -3000 ml awake and alert appears stated age NAD following commands no aphasia no neglect CN: BRET , VFF, EOMI no nystagmus no facial asymmetry palate upgoing uvula midline scm/trap intact, tongue midline Motor: strength 5/5 throughout some limitation in hip flexion and extension due to reported pain when full effort provided strength is full, tremulous in both UE Tone wnl Sensory increased to PP sensation, absent vibratory sensation at toes and knee intact LT sensory Reflexes 1+ UE absent KJ absent AJ toes downgoing Coordination no FTN ataxia however when eyes are closed he has significant truncal ataxia loss of proprioception Results/Medications Result Diagram: 12/16/16 0515 12/16/16 0515 Results 24 hrs Laboratory Tests Test 12/15/16 17:20 12/15/16 18:05 12/15/16 18:18 12/15/16 18:41 Bedside Glucose 59 L 90 149 Creatine Kinase 493 H Creatine Kinase Index 0.7 Creatinine Kinase MB (Mass) 3.33 H Potassium Level 5.0 # Troponin I 0.040 Test 12/15/16 21:00 12/16/16 00:23 12/16/16 05:15 12/16/16 07:06 Bedside Glucose 180 52 L Creatine Kinase 475 H Creatine Kinase Index 0.6 Creatinine Kinase MB (Mass) 2.83 H Troponin I 0.081 Alanine Aminotransferase (ALT/SGPT) 30 Albumin 4.4 Albumin/Globulin Ratio 1.51 Alkaline Phosphatase 146 H Anion Gap 24 H Aspartate Amino Transf (AST/SGOT) 26 Basophils # 0.1 Basophils % 0.7 Blood Urea Nitrogen 66 #H Calcium Level 8.8 Carbon Dioxide Level 29 Chloride Level 95 L Cholesterol Level 96 L Cholesterol/HDL Ratio 2.6 Creatinine 9.16 #H Direct Bilirubin 0.00 Eosinophils # 0.3 Eosinophils % 2.8 Globulin 2.90 Glucose Level 39 #*L HDL Cholesterol 36 Hematocrit 34.3 L Hemoglobin 11.0 L Hemoglobin A1c 7.2 H Indirect Bilirubin 0.3 LDL Cholesterol, Calculated 36 Lymphocytes # 1.4 Lymphocytes % 15.2 Mean Corpuscular Hemoglobin 31.3 Mean Corpuscular Hemoglobin Concent 32.1 Mean Corpuscular Volume 97.4 Mean Platelet Volume 10.8 H Monocytes # 0.9 Monocytes % 10.1 Neutrophils # 6.5 Neutrophils % 70.7 Nucleated Red Blood Cells # 0.0 Nucleated Red Blood Cells % 0.0 Platelet Count 259 # Potassium Level 5.0 Red Blood Count 3.52 L Red Cell Distribution Width 13.2 Sodium Level 143 Thyroid Stimulating Hormone (TSH) 5.130 H Total Bilirubin 0.3 Total Protein 7.3 Triglycerides Level 121 Vitamin B12 Level > 1000 H White Blood Count 9.1 # Test 12/16/16 07:28 12/16/16 07:46 12/16/16 08:37 12/16/16 11:25 Bedside Glucose 61 L 72 112 182 Medications Current Medications Diagnostic Test (Pha) (Accucheck) 1 ea 02 XX ; Start 12/16/16 at 02:00 Pantoprazole (Protonix Iv) 40 mg DAILY@06 IV Last administered on 12/16/16t 06: 08; Admin Dose 40 MG; Start 12/16/16 at 06:00 Miscellaneous Information 1 ea NOTE XX ; Start 12/15/16 at 14:30 Glucose (Glutose) 15 gm Q15M PRN PO DECREASED GLUCOSE; Start 12/15/16 at 14:30 Glucose (Glutose) 22.5 gm Q15M PRN PO DECREASED GLUCOSE; Start 12/15/16 at 14: 30 Dextrose (D50w Syringe) 25 ml Q15M PRN IV DECREASED GLUCOSE; Start 12/15/16 at 14:30 Dextrose (D50w Syringe) 50 ml Q15M PRN IV DECREASED GLUCOSE; Start 12/15/16 at 14:30 Glucagon (Glucagen) 1 mg Q15M PRN IM DECREASED GLUCOSE; Start 12/15/16 at 14:30 Glucose (Glutose) 15 gm Q15M PRN BUCCAL DECREASED GLUCOSE; Start 12/15/16 at 14 :30 Carvedilol (Coreg) 6.25 mg BID PO Last administered on 12/16/16 08:28; Admin Dose 6.25 MG; Start 12/15/16 at 21:00 Cinacalcet (Sensipar) 30 mg DAILY PO Last administered on 12/16/16 08:27; Admin Dose 30 MG; Start 12/16/16 at 09:00 Olanzapine (Zyprexa) 5 mg DAILY PO Last administered on 12/16/16 08:28; Admin Dose 5 MG; Start 12/16/16 at 09:00 Tramadol HCl (Ultram) 50 mg BID PRN PO PAIN; Start 12/15/16 at 20:00 Zolpidem Tartrate (Ambien) 5 mg QHS PRN PO INSOMNIA Last administered on 00:38; Admin Dose 5 MG; Start 12/15/16 at 20:00 Ondansetron HCl (Zofran Inj) 4 mg Q6H PRN IV NAUSEA AND/OR VOMITING; Start 08/23 at 20:00 Acetaminophen (Tylenol Tab) 650 mg Q6H PRN PO PAIN LEVEL 1-3 OR FEVER; Start at 20:00 Acetaminophen/ Hydrocodone Bitart ([place] (5/325)) 1 tab Q6H PRN PO MODERATE PAIN LEVEL 4-6 Last administered on 12/15/16 20:56; Admin Dose 1 TAB; Start 08/23 at 20:00 Docusate Sodium (Colace) 100 mg Q12H PRN PO CONSTIPATION; Start 12/15/16 at 20: 00 Amlodipine Besylate (Norvasc) 5 mg BID PO ; Start 12/16/16 at 21:00 Assessment/Plan Chief Complaint/Hosp Course 71 year old M with history of ESRD on dialysis, chronic LE pain and severe cramping post dialysis. -will pursue neuropathy work up B12, TSH, HBA1C -CTH reviewed chronic changes, diffuse atrophy no acute strokes -continue on Lyrica 100 mg after dialysis, he is willing to try this dose, if unable to tolerate will try gabapentin at higher doses will require outpatient neurology follow up for titration and follow up -may benefit from outpatient EMG/NCV studies to further characterize neuropathy -PT evaluation for a walker, gait and balance training -further neurology work up as outpatient Problems: DENYS WORTHY MD Dec 16, 2016 16:55
[2016-12-16 16:58] LABS: TROPONIN-I 0.037 ng/ml (0.00-0.12)
[2016-12-16 17:08] LABS: CK-MB 3.55 ng/ml (0.0-2.4)
[2016-12-16] MEDS: AMLODIPINE 5 MG TAB PO SCH (20:13)
[2016-12-16] MEDS: HYDROCODONE/APAP (5/325) TAB PO PRN (20:24)
[2016-12-17] VITALS (20 sets, daily range): BP systolic 136–157; BP diastolic 65–73; PULSE 74–83; RESP 17–20
[2016-12-17] MEDS: ZOLPIDEM 5 MG TAB PO PRN ×2 (00:51→22:41)
[2016-12-17] MEDS: ACCUCHECK XX SCH (02:00)
[2016-12-17 07:06] LABS: ADD SCAN DIFF NO
[2016-12-17 07:14] LABS: BASOPHILS % 0.5 % (0.0-2.0); EOSINOPHILS # 0.2 10^3/ul (0.0-0.5); HEMATOCRIT 30.8 % (42.0-52.0); HEMOGLOBIN 9.9 g/dl (14.0-18.0); LYMPHOCYTES # 0.8 10^3/ul (0.8-2.9); LYMPHOCYTES % 13.9 % (15.0-51.0); MEAN CORPUSCULAR HEMOGLOBIN 31.6 pg (29.0-33.0); MEAN CORPUSCULAR HGB CONC 32.1 g/dl (32.0-37.0); MEAN CORPUSCULAR VOLUME 98.4 fl (82.0-101.0); MONOCYTE # 0.6 10^3/ul (0.3-0.9); NEUTROPHIL # 4.3 10^3/ul (1.6-7.5); NEUTROPHILS % 72.1 % (39.0-77.0); PLATELET COUNT 186 10^3/UL (140-415); RED BLOOD COUNT 3.13 10^6/ul (4.70-6.10); RED CELL DISTRIBUTION WIDTH 13.2 % (11.5-14.5)
[2016-12-17 07:40] LABS: ALBUMIN 3.8 g/dl (3.3-4.9)
[2016-12-17 07:41] LABS: POTASSIUM 5.6 mmol/L (3.5-5.1)
[2016-12-17 07:43] LABS: ALBUMIN/GLOBULIN RATIO 1.52; BILIRUBIN,INDIRECT 0.1 mg/dl (0-1.1); BILIRUBIN,TOTAL 0.1 mg/dl (0.2-1.3); CREATININE 11.27 mg/dl (0.61-1.24); TOTAL PROTEIN 6.3 g/dl (6.1-8.1)
[2016-12-17 07:44] LABS: CALCIUM 7.8 mg/dl (8.4-10.2)
[2016-12-17] MEDS: INSULIN ASPART [NOVOLOG] 3 ML PEN SC SCH ×4 (07:55→21:00)
[2016-12-17] MEDS: SEVELAMER CARBONATE 0.8 GM PKT PO SCH ×3 (08:54→17:13)
[2016-12-17] MEDS: AMLODIPINE 5 MG TAB PO SCH ×2 (08:57→21:10)
[2016-12-17] MEDS: OLANZAPINE 5 MG TAB PO SCH (08:58)
[2016-12-17] MEDS: CINACALCET 30 MG TAB PO SCH (08:58)
--- NOTE | 2016-12-17 09:04 | RADRPT ---
PROCEDURE: Bilateral lower extremity arterial ultrasound CLINICAL INDICATION: Lower extremity pain and claudication TECHNIQUE: Sandoval-scale and color images with doppler of the lower extremities were obtained COMPARISON: None available FINDINGS: Antegrade flow is noted in all visulaized arteries of the lower extremities. Biphasic and triphasic waveforms are seen throughout both lower extremities. Calcified atherosclerosis is seen scattered th roughout both lower extremities. Rt [employer] 82 cm/s Rt Profunda 85 cm/s Rt Prox SFA 114 cm/s Rt Mid SFA 98 cm/s Rt Dist SFA 74 cm/s Rt Tonya 84 cm/s Rt Post Tibial 95 cm/s Rt Dorsalis Pedis 27 cm/s Rt TOBIAS not performed Lt [employer] 88 cm/s Lt Profunda 101 cm/s Lt Prox SFA 94 cm/s Lt Mid SFA 94 cm/s Lt Dist SFA 72 cm/s Lt Tonya 74 cm/s Lt Post Tibial 98 cm/s Lt Dorsalis Pedis 37 cm/s Lt TOBIAS not performed IMPRESSION: No visualized hemodynamically significant lesion. Calcified atherosclerosis in both lower extremities. If further characterization of the arterial vasculature is needed CTA is recommended. RPTAT: AA .Rafita Montano MD, Date Time Electronically viewed and signed by .Rafita Montano MD, on 12/17/2016 09:03 .P/
--- NOTE | 2016-12-17 14:43 | CONS ---
Date/Time of Note Date/Time of Note DATE: 12/17/16 TIME: 14:39 Assessment/Plan Assessment/Plan Chief Complaint/Hosp Course IMPRESSION: 1. Abnormal electrocardiogram, assess for acute coronary syndrome.-negative troponin x 3/NL EF by echo this admit 2. Shortness of breath, assess for congestive heart failure. 3. Hypertension-slowly improving 4. Dyslipidemia. 5. End-stage renal disease on hemodialysis. 6. Generalized weakness, now improved, likely secondary to hyperkalemia. 7. Hyperkalemia, status post hemodialysis. 8. Leukocytosis. 9. Anemia. 10.MR-mod-sev by echo this admit Recc: -Tele -Ongoing neuro eval -Continue norvasc and coreg and follow-up BP after patient receives -HD for volume removal Problems: Consultation Date/Type/Reason Admit Date/Time Dec 15, 2016 at 12:39 Initial Consult Date 12/15/16 Type of Consultation: Cardiology Reason for Consultation abnl ecg/MR Referring Provider: DAWOOD DAHL MD Exam/Review of Systems Vital Signs Vitals Vital Signs Date Time Temp Pulse Resp B/P Pulse Ox O2 Delivery O2 Flow Rate FiO2 12/17/16 14:00 82 12/17/16 11:00 18 12/17/16 08:06 97.7 141/65 95 12/17/16 04:00 Room Air Intake and Output 12/16/16 12/16/16 12/17/16 15:00 23:00 07:00 Intake Total 200 ml 660 ml Balance 200 ml 660 ml Exam Review of Systems: CONSTITUTIONAL: No fevers, chills. PULMONARY: No sob CARDIOVASCULAR: No chest pain/palpitations GASTROINTESTINAL: No nausea/vomiting. GENITOURINARY: No hematuria/dysuria. MUSCULOSKELETAL: No myagias/arthalgias. PSYCHIATRIC: The patient denies depression. NEUROLOGIC: No weakness Constitutional: alert, oriented Psych: no complaints Head: normocephalic ENMT: mucosa pink and moist Neck: jvd (9 cm water), supple Respiratory: diminished breath sounds (at bases/B) Cardiovascular: regular rate and rhythm Gastrointestinal: non-tender, soft Musculoskeletal: muscle tone (normal) Extremities: edema (trace/B) Neurological: other (No focal deficits) Results Result Diagram: 12/17/1617 12/17/1617 Results 24 hrs Laboratory Tests Test 12/16/16 16:15 12/16/16 17:11 12/16/16 20:15 12/17/16 02:51 Creatine Kinase 419 H Creatine Kinase Index 0.8 Creatinine Kinase MB (Mass) 3.55 H Troponin I 0.037 Bedside Glucose 185 151 156 Test 12/17/16 06:17 12/17/16 08:13 12/17/16 11:43 Alanine Aminotransferase (ALT/SGPT) 20 Albumin 3.8 Albumin/Globulin Ratio 1.52 Alkaline Phosphatase 136 H Anion Gap 25 H Aspartate Amino Transf (AST/SGOT) 15 Basophils # 0.0 Basophils % 0.5 Blood Urea Nitrogen 93 H Calcium Level 7.8 L Carbon Dioxide Level 25 Chloride Level 95 L Creatinine 11.27 #H Direct Bilirubin 0.00 Eosinophils # 0.2 Eosinophils % 3.0 Globulin 2.50 Glucose Level 136 # Hematocrit 30.8 L Hemoglobin 9.9 L Indirect Bilirubin 0.1 Lymphocytes # 0.8 Lymphocytes % 13.9 L Mean Corpuscular Hemoglobin 31.6 Mean Corpuscular Hemoglobin Concent 32.1 Mean Corpuscular Volume 98.4 Mean Platelet Volume 11.0 H Monocytes # 0.6 Monocytes % 10.0 Neutrophils # 4.3 Neutrophils % 72.1 Nucleated Red Blood Cells # 0.0 Nucleated Red Blood Cells % 0.0 Platelet Count 186 # Potassium Level 5.6 H Red Blood Count 3.13 L Red Cell Distribution Width 13.2 Sodium Level 139 Total Bilirubin 0.1 L Total Protein 6.3 # White Blood Count 6.0 # Bedside Glucose 135 179 Medications Medications Current Medications Diagnostic Test (Pha) (Accucheck) 1 ea 02 XX ; Start 12/16/16 at 02:00 Miscellaneous Information 1 ea NOTE XX ; Start 12/15/16 at 14:30 Glucose (Glutose) 15 gm Q15M PRN PO DECREASED GLUCOSE; Start 12/15/16 at 14:30 Glucose (Glutose) 22.5 gm Q15M PRN PO DECREASED GLUCOSE; Start 12/15/16 at 14: 30 Dextrose (D50w Syringe) 25 ml Q15M PRN IV DECREASED GLUCOSE; Start 12/15/16 at 14:30 Dextrose (D50w Syringe) 50 ml Q15M PRN IV DECREASED GLUCOSE; Start 12/15/16 at 14:30 Glucagon (Glucagen) 1 mg Q15M PRN IM DECREASED GLUCOSE; Start 12/15/16 at 14:30 Glucose (Glutose) 15 gm Q15M PRN BUCCAL DECREASED GLUCOSE; Start 12/15/16 at 14 :30 Carvedilol (Coreg) 6.25 mg BID PO Last administered on 12/16/16 20:14; Admin Dose 6.25 MG; Start 12/15/16 at 21:00 Cinacalcet (Sensipar) 30 mg DAILY PO Last administered on 12/17/16 08:58; Admin Dose 30 MG; Start 12/16/16 at 09:00 Olanzapine (Zyprexa) 5 mg DAILY PO Last administered on 12/17/16 08:58; Admin Dose 5 MG; Start 12/16/16 at 09:00 Tramadol HCl (Ultram) 50 mg BID PRN PO PAIN; Start 12/15/16 at 20:00 Zolpidem Tartrate (Ambien) 5 mg QHS PRN PO INSOMNIA Last administered on 00:51; Admin Dose 5 MG; Start 12/15/16 at 20:00 Ondansetron HCl (Zofran Inj) 4 mg Q6H PRN IV NAUSEA AND/OR VOMITING; Start 08/23 at 20:00 Acetaminophen (Tylenol Tab) 650 mg Q6H PRN PO PAIN LEVEL 1-3 OR FEVER; Start at 20:00 Acetaminophen/ Hydrocodone Bitart ([place] (5/325)) 1 tab Q6H PRN PO MODERATE PAIN LEVEL 4-6 Last administered on 12/16/16 20:24; Admin Dose 1 TAB; Start 08/23 at 20:00 Docusate Sodium (Colace) 100 mg Q12H PRN PO CONSTIPATION Last administered on 20:23; Admin Dose 100 MG; Start 12/15/16 at 20:00 Amlodipine Besylate (Norvasc) 5 mg BID PO Last administered on 12/16/16 20:13 ; Admin Dose 5 MG; Start 12/16/16 at 21:00 Pantoprazole (Protonix Tab) 40 mg DAILY@06 PO ; Start 12/18/16 at 06:00 MY MENDEZ 13, 2017 14:43
[2016-12-17] MEDS: HYDROCODONE/APAP (5/325) TAB PO PRN (19:45)
--- NOTE | 2016-12-17 23:20 | PN ---
Date/Time of Note Date/Time of Note DATE: 12/17/16 TIME: 23:19 Assessment/Plan VTE Prophylaxis VTE Prophylaxis Intervention: other Lines/Catheters [facility] Saline Lock Urinary Cath still in place: No Assessment/Plan Chief Complaint/Hosp Course IMPRESSION: 1. Hyperkalemia. 2. Anasarca. 3. Diabetes mellitus. 4. Hypertension. 5. Anemia. 6. Leukocytosis. 7. Noncompliance with medication and fluid intake. PLAN US LEGS HD mri back Problems: Subjective 24 Hr Interval Summary Cardiovascular: no complaints Gastrointestinal: no complaints Exam/Review of Systems Vital Signs Vitals Vital Signs Date Time Temp Pulse Resp B/P Pulse Ox O2 Delivery O2 Flow Rate FiO2 12/17/16 20:35 82 12/17/16 20:00 98.3 20 157/67 95 Room Air Intake and Output 12/16/16 12/16/16 12/17/16 15:00 23:00 07:00 Intake Total 200 ml 660 ml Balance 200 ml 660 ml Exam Respiratory: clear to auscultation Cardiovascular: regular rate and rhythm Gastrointestinal: soft Musculoskeletal: nl extremities to inspection Extremities: normal pulses Results Result Diagram: 12/17/1661612/17/1617 Results 24 hrs Laboratory Tests Test 12/17/16 02:51 12/17/16 06:17 12/17/16 08:13 12/17/16 11:43 Bedside Glucose 156 135 179 Alanine Aminotransferase (ALT/SGPT) 20 Albumin 3.8 Albumin/Globulin Ratio 1.52 Alkaline Phosphatase 136 H Anion Gap 25 H Aspartate Amino Transf (AST/SGOT) 15 Basophils # 0.0 Basophils % 0.5 Blood Urea Nitrogen 93 H Calcium Level 7.8 L Carbon Dioxide Level 25 Chloride Level 95 L Creatinine 11.27 #H Direct Bilirubin 0.00 Eosinophils # 0.2 Eosinophils % 3.0 Globulin 2.50 Glucose Level 136 # Hematocrit 30.8 L Hemoglobin 9.9 L Indirect Bilirubin 0.1 Lymphocytes # 0.8 Lymphocytes % 13.9 L Mean Corpuscular Hemoglobin 31.6 Mean Corpuscular Hemoglobin Concent 32.1 Mean Corpuscular Volume 98.4 Mean Platelet Volume 11.0 H Monocytes # 0.6 Monocytes % 10.0 Neutrophils # 4.3 Neutrophils % 72.1 Nucleated Red Blood Cells # 0.0 Nucleated Red Blood Cells % 0.0 Platelet Count 186 # Potassium Level 5.6 H Red Blood Count 3.13 L Red Cell Distribution Width 13.2 Sodium Level 139 Total Bilirubin 0.1 L Total Protein 6.3 # White Blood Count 6.0 # Test 12/17/16 17:15 12/17/16 21:12 Bedside Glucose 219 172 Medications Medications Current Medications Diagnostic Test (Pha) (Accucheck) 1 ea 02 XX ; Start 12/16/16 at 02:00 Miscellaneous Information 1 ea NOTE XX ; Start 12/15/16 at 14:30 Glucose (Glutose) 15 gm Q15M PRN PO DECREASED GLUCOSE; Start 12/15/16 at 14:30 Glucose (Glutose) 22.5 gm Q15M PRN PO DECREASED GLUCOSE; Start 12/15/16 at 14: 30 Dextrose (D50w Syringe) 25 ml Q15M PRN IV DECREASED GLUCOSE; Start 12/15/16 at 14:30 Dextrose (D50w Syringe) 50 ml Q15M PRN IV DECREASED GLUCOSE; Start 12/15/16 at 14:30 Glucagon (Glucagen) 1 mg Q15M PRN IM DECREASED GLUCOSE; Start 12/15/16 at 14:30 Glucose (Glutose) 15 gm Q15M PRN BUCCAL DECREASED GLUCOSE; Start 12/15/16 at 14 :30 Carvedilol (Coreg) 6.25 mg BID PO Last administered on 12/17/16 21:09; Admin Dose 6.25 MG; Start 12/15/16 at 21:00 Cinacalcet (Sensipar) 30 mg DAILY PO Last administered on 12/17/16 08:58; Admin Dose 30 MG; Start 12/16/16 at 09:00 Olanzapine (Zyprexa) 5 mg DAILY PO Last administered on 12/17/16 08:58; Admin Dose 5 MG; Start 12/16/16 at 09:00 Tramadol HCl (Ultram) 50 mg BID PRN PO PAIN; Start 12/15/16 at 20:00 Zolpidem Tartrate (Ambien) 5 mg QHS PRN PO INSOMNIA Last administered on 22:41; Admin Dose 5 MG; Start 12/15/16 at 20:00 Ondansetron HCl (Zofran Inj) 4 mg Q6H PRN IV NAUSEA AND/OR VOMITING; Start 08/23 at 20:00 Acetaminophen (Tylenol Tab) 650 mg Q6H PRN PO PAIN LEVEL 1-3 OR FEVER; Start at 20:00 Acetaminophen/ Hydrocodone Bitart ([place] (5/325)) 1 tab Q6H PRN PO MODERATE PAIN LEVEL 4-6 Last administered on 12/17/16 19:45; Admin Dose 1 TAB; Start 08/23 at 20:00 Docusate Sodium (Colace) 100 mg Q12H PRN PO CONSTIPATION Last administered on 20:23; Admin Dose 100 MG; Start 12/15/16 at 20:00 Amlodipine Besylate (Norvasc) 5 mg BID PO Last administered on 12/17/16 21:10 ; Admin Dose 5 MG; Start 12/16/16 at 21:00 Pantoprazole (Protonix Tab) 40 mg DAILY@06 PO ; Start 12/18/16 at 06:00 DAWOOD DAHL MD Dec 17, 2016 23:20
[2016-12-18] VITALS (15 sets, daily range): BP systolic 125–154; BP diastolic 62–77; PULSE 74–96; RESP 18–20
[2016-12-18] MEDS: ACCUCHECK XX SCH (02:00)
[2016-12-18] MEDS: PANTOPRAZOLE (EC) 40 MG TAB PO SCH (06:18)
[2016-12-18 07:19] LABS: POTASSIUM 5.2 mmol/L (3.5-5.1)
[2016-12-18 07:22] LABS: CALCIUM 8.2 mg/dl (8.4-10.2); CREATININE 9.25 mg/dl (0.61-1.24)
[2016-12-18] MEDS: INSULIN ASPART [NOVOLOG] 3 ML PEN SC SCH ×4 (07:55→23:11)
[2016-12-18] MEDS: CINACALCET 30 MG TAB PO SCH (08:24)
[2016-12-18] MEDS: OLANZAPINE 5 MG TAB PO SCH (08:24)
[2016-12-18] MEDS: SEVELAMER CARBONATE 0.8 GM PKT PO SCH ×3 (08:24→18:11)
[2016-12-18] MEDS: AMLODIPINE 5 MG TAB PO SCH ×2 (08:24→21:16)
--- NOTE | 2016-12-18 12:35 | CONS ---
Date/Time of Note Date/Time of Note DATE: 12/18/16 TIME: 12:32 Assessment/Plan Assessment/Plan Additional Assessment/Plan 1. Abnormal electrocardiogram, assess for acute coronary syndrome.-negative troponin x 3/NL EF by echo this admit - NO CP now. 2. Shortness of breath, assess for congestive heart failure - much better now. 3. Hypertension-slowly improving- well RX. 4. Dyslipidemia. 5. End-stage renal disease on hemodialysis- HD as needed. 6. Generalized weakness, now improved, likely secondary to hyperkalemia. 7. Hyperkalemia, status post hemodialysis. 8. Leukocytosis - on anti-Bx, con't Rx. 9. Anemia. - no signs of bleeding. 10.MR-mod-sev by echo this admit Consultation Date/Type/Reason Admit Date/Time Dec 15, 2016 at 12:39 Initial Consult Date 12/15/16 Type of Consultation: Cardiology Referring Provider: DAWOOD DAHL MD 24 HR Interval Summary Free Text/Dictation NO acute change - no ectopy on tele. BP in good range now. ROS: No fever, no chills, no nausea, no vomiting, no diarrhea/constipation No recent weight changes No chest pain, no PND, no orthopnea No dizziness, blurred vision No thirst, no heat or cold intolerance Exam/Review of Systems Vital Signs Vitals Vital Signs Date Time Temp Pulse Resp B/P Pulse Ox O2 Delivery O2 Flow Rate FiO2 12/18/16 11:08 97.8 75 18 134/62 97 12/18/16 04:00 Room Air Intake and Output 12/17/16 12/17/16 12/18/16 15:00 23:00 07:00 Intake Total 1100 ml 600 ml 120 ml Output Total 3600 ml Balance -2500 ml 600 ml 120 ml Exam General: WN/WD/NAD, AOx 3 HEENT: Unicetric/atraumatic/EOMI (follows commands) NECK: JVD elevated, no thyromegaly Lymph: no lymphadenopathy HEART: regular with no S3, II/ systolic murmur at apex LUNGS: Coarse sounds ABD: soft, NT, ND, +BS : Intact Neuro: non focal SKIN: chronic changes EXT: trace edema Results Result Diagram: 12/17/16 0617 12/18/16 0620 Results 24 hrs Laboratory Tests Test 12/17/16 17:15 12/17/16 21:12 12/18/16 06:20 12/18/16 08:11 Bedside Glucose 219 172 90 Anion Gap 22 H Blood Urea Nitrogen 75 H Calcium Level 8.2 L Carbon Dioxide Level 28 Chloride Level 93 L Creatinine 9.25 #H Glucose Level 111 Potassium Level 5.2 H Sodium Level 138 Medications Medications Current Medications Diagnostic Test (Pha) (Accucheck) 1 ea 02 XX ; Start 12/16/16 at 02:00 Miscellaneous Information 1 ea NOTE XX ; Start 12/15/16 at 14:30 Glucose (Glutose) 15 gm Q15M PRN PO DECREASED GLUCOSE; Start 12/15/16 at 14:30 Glucose (Glutose) 22.5 gm Q15M PRN PO DECREASED GLUCOSE; Start 12/15/16 at 14: 30 Dextrose (D50w Syringe) 25 ml Q15M PRN IV DECREASED GLUCOSE; Start 12/15/16 at 14:30 Dextrose (D50w Syringe) 50 ml Q15M PRN IV DECREASED GLUCOSE; Start 12/15/16 at 14:30 Glucagon (Glucagen) 1 mg Q15M PRN IM DECREASED GLUCOSE; Start 12/15/16 at 14:30 Glucose (Glutose) 15 gm Q15M PRN BUCCAL DECREASED GLUCOSE; Start 12/15/16 at 14 :30 Carvedilol (Coreg) 6.25 mg BID PO Last administered on 12/18/16 08:23; Admin Dose 6.25 MG; Start 12/15/16 at 21:00 Cinacalcet (Sensipar) 30 mg DAILY PO Last administered on 12/18/16 08:24; Admin Dose 30 MG; Start 12/16/16 at 09:00 Olanzapine (Zyprexa) 5 mg DAILY PO Last administered on 12/18/16 08:24; Admin Dose 5 MG; Start 12/16/16 at 09:00 Tramadol HCl (Ultram) 50 mg BID PRN PO PAIN; Start 12/15/16 at 20:00 Zolpidem Tartrate (Ambien) 5 mg QHS PRN PO INSOMNIA Last administered on 22:41; Admin Dose 5 MG; Start 12/15/16 at 20:00 Ondansetron HCl (Zofran Inj) 4 mg Q6H PRN IV NAUSEA AND/OR VOMITING; Start 08/23 at 20:00 Acetaminophen (Tylenol Tab) 650 mg Q6H PRN PO PAIN LEVEL 1-3 OR FEVER; Start at 20:00 Acetaminophen/ Hydrocodone Bitart ([place] (5/325)) 1 tab Q6H PRN PO MODERATE PAIN LEVEL 4-6 Last administered on 12/17/16 19:45; Admin Dose 1 TAB; Start 08/23 at 20:00 Docusate Sodium (Colace) 100 mg Q12H PRN PO CONSTIPATION Last administered on 20:23; Admin Dose 100 MG; Start 12/15/16 at 20:00 Amlodipine Besylate (Norvasc) 5 mg BID PO Last administered on 12/18/16 08:24 ; Admin Dose 5 MG; Start 12/16/16 at 21:00 Pantoprazole (Protonix Tab) 40 mg DAILY@06 PO Last administered on 12/18/16 06 :18; Admin Dose 40 MG; Start 12/18/16 at 06:00 AD GUILLERMO MD Dec 18, 2016 12:34
[2016-12-18] MEDS ORDERED: LORAZEPAM 2 MG INJ IV ONE (13:30)
--- NOTE | 2016-12-18 17:52 | RADRPT ---
PROCEDURE: XR Lumbar Spine. CLINICAL INDICATION: Back pain. TECHNIQUE: Three views. AP, lateral and cone-down lateral view of the lumbar spine were obtained. COMPARISON: No prior studies are available for comparison. FINDINGS: There is normal stature and alignment of the vertebrae. There is no fracture. There is no lytic or blastic lesion. There are degenerative changes with osteophytes throughout. The disk height is normal. Vascular calcifications are present consistent with atherosclerosis. There has been previous left acetabular surgery with multiple screws and a plate. IMPRESSION: 1. Degenerative change. 2. Atherosclerosis. 3. Prior left acetabular surgery. 4. No acute abnormality of the lumbar spine. RPTAT: QQ .Chai Greenberg MD, Date Time Electronically viewed and signed by .Chai Greenberg MD, on 12/18/2016 17:52 .R/
--- NOTE | 2016-12-18 20:27 | PN ---
Date/Time of Note Date/Time of Note DATE: 12/18/16 TIME: 20:25 Assessment/Plan VTE Prophylaxis VTE Prophylaxis Intervention: other Lines/Catheters IV [facility] Type (from [facility] Saline Lock Urinary Cath still in place: No Assessment/Plan Chief Complaint/Hosp Course IMPRESSION: 1. Hyperkalemia. 2. Anasarca. 3. Diabetes mellitus. 4. Hypertension. 5. Anemia. 6. Leukocytosis. 7. Noncompliance with medication and fluid intake. PLAN US LEGS neg HD refused mri eill do xr back Problems: Subjective 24 Hr Interval Summary Respiratory: no complaints Cardiovascular: no complaints Gastrointestinal: no complaints Musculoskeletal: restricted range of motion Exam/Review of Systems Vital Signs Vitals Vital Signs Date Time Temp Pulse Resp B/P Pulse Ox O2 Delivery O2 Flow Rate FiO2 12/18/16 19:42 98.0 79 20 150/67 98 12/18/16 04:00 Room Air Intake and Output 12/17/16 12/17/16 12/18/16 15:00 23:00 07:00 Intake Total 1100 ml 600 ml 120 ml Output Total 3600 ml Balance -2500 ml 600 ml 120 ml Exam Respiratory: clear to auscultation Cardiovascular: regular rate and rhythm Gastrointestinal: soft Musculoskeletal: nl extremities to inspection Extremities: normal pulses Results Result Diagram: 12/17/16 0617 12/18/16 0620 Results 24 hrs Laboratory Tests Test 12/17/16 21:12 12/18/16 06:20 12/18/16 08:11 12/18/16 12:32 Bedside Glucose 172 90 200 Anion Gap 22 H Blood Urea Nitrogen 75 H Calcium Level 8.2 L Carbon Dioxide Level 28 Chloride Level 93 L Creatinine 9.25 #H Glucose Level 111 Potassium Level 5.2 H Sodium Level 138 Test 12/18/16 18:04 Bedside Glucose 147 Medications Medications Current Medications Diagnostic Test (Pha) (Accucheck) 1 ea 02 XX ; Start 12/16/16 at 02:00 Miscellaneous Information 1 ea NOTE XX ; Start 12/15/16 at 14:30 Glucose (Glutose) 15 gm Q15M PRN PO DECREASED GLUCOSE; Start 12/15/16 at 14:30 Glucose (Glutose) 22.5 gm Q15M PRN PO DECREASED GLUCOSE; Start 12/15/16 at 14: 30 Dextrose (D50w Syringe) 25 ml Q15M PRN IV DECREASED GLUCOSE; Start 12/15/16 at 14:30 Dextrose (D50w Syringe) 50 ml Q15M PRN IV DECREASED GLUCOSE; Start 12/15/16 at 14:30 Glucagon (Glucagen) 1 mg Q15M PRN IM DECREASED GLUCOSE; Start 12/15/16 at 14:30 Glucose (Glutose) 15 gm Q15M PRN BUCCAL DECREASED GLUCOSE; Start 12/15/16 at 14 :30 Carvedilol (Coreg) 6.25 mg BID PO Last administered on 12/18/16 08:23; Admin Dose 6.25 MG; Start 12/15/16 at 21:00 Cinacalcet (Sensipar) 30 mg DAILY PO Last administered on 12/18/16 08:24; Admin Dose 30 MG; Start 12/16/16 at 09:00 Olanzapine (Zyprexa) 5 mg DAILY PO Last administered on 12/18/16 08:24; Admin Dose 5 MG; Start 12/16/16 at 09:00 Tramadol HCl (Ultram) 50 mg BID PRN PO PAIN; Start 12/15/16 at 20:00 Zolpidem Tartrate (Ambien) 5 mg QHS PRN PO INSOMNIA Last administered on 22:41; Admin Dose 5 MG; Start 12/15/16 at 20:00 Ondansetron HCl (Zofran Inj) 4 mg Q6H PRN IV NAUSEA AND/OR VOMITING; Start 08/23 at 20:00 Acetaminophen (Tylenol Tab) 650 mg Q6H PRN PO PAIN LEVEL 1-3 OR FEVER; Start at 20:00 Acetaminophen/ Hydrocodone Bitart ([place] (5/325)) 1 tab Q6H PRN PO MODERATE PAIN LEVEL 4-6 Last administered on 12/17/16 19:45; Admin Dose 1 TAB; Start 08/23 at 20:00 Docusate Sodium (Colace) 100 mg Q12H PRN PO CONSTIPATION Last administered on 20:23; Admin Dose 100 MG; Start 12/15/16 at 20:00 Amlodipine Besylate (Norvasc) 5 mg BID PO Last administered on 12/18/16 08:24 ; Admin Dose 5 MG; Start 12/16/16 at 21:00 Pantoprazole (Protonix Tab) 40 mg DAILY@06 PO Last administered on 12/18/16t 06 :18; Admin Dose 40 MG; Start 12/18/16 at 06:00 DAWOOD DAHL MD Dec 18, 2016 20:26
[2016-12-18 21:13] LABS: POTASSIUM 5.9 mmol/L (3.5-5.1)
[2016-12-18 21:16] LABS: CREATININE 10.71 mg/dl (0.61-1.24)
[2016-12-19] VITALS (15 sets, daily range): BP systolic 141–176; BP diastolic 65–78; PULSE 74–83; RESP 18–22
[2016-12-19] MEDS: ACCUCHECK XX SCH (02:00)
[2016-12-19] MEDS: PANTOPRAZOLE (EC) 40 MG TAB PO SCH (06:56)
[2016-12-19] MEDS: CINACALCET 30 MG TAB PO SCH (08:40)
[2016-12-19] MEDS: OLANZAPINE 5 MG TAB PO SCH (08:40)
[2016-12-19] MEDS: SEVELAMER CARBONATE 0.8 GM PKT PO SCH ×3 (08:40→17:42)
[2016-12-19] MEDS: INSULIN ASPART [NOVOLOG] 3 ML PEN SC SCH ×3 (08:44→17:47)
[2016-12-19] MEDS: AMLODIPINE 5 MG TAB PO SCH (09:00)
--- NOTE | 2016-12-19 13:18 | PDOCDIS ---
Discharge Instructions CONDITION Patient Condition: Good HOME CARE INSTRUCTIONS: Special Diet: renal ACTIVITY: Activity Restrictions: Slowly Increase Activity FOLLOW UP/APPOINTMENTS Appointments d/u dr dahl 2 wks,see dr camara [address] escamilla 1 wk DAWOOD DAHL MD Dec 19, 2016 13:18
[2016-12-19] MEDS ORDERED: HYDR-3498 PO (13:20)
[2016-12-19] MEDS ORDERED: AMLO-145 PO (13:20)
--- NOTE | 2016-12-19 15:24 | CONS ---
Date/Time of Note Date/Time of Note DATE: 12/19/16 TIME: 15:23 Assessment/Plan Assessment/Plan Chief Complaint/Hosp Course IMPRESSION: 1. Abnormal electrocardiogram, assess for acute coronary syndrome.-negative troponin x 3/NL EF by echo this admit 2. Shortness of breath, assess for congestive heart failure. 3. Hypertension-improved on oral anti-hypertensives 4. Dyslipidemia. 5. End-stage renal disease on hemodialysis. 6. Generalized weakness, now improved, likely secondary to hyperkalemia. 7. Hyperkalemia, status post hemodialysis. 8. Leukocytosis. 9. Anemia. 10.MR-mod-sev by echo this admit Recc: -Tele -Ongoing neuro eval -Continue norvasc and coreg and follow-up BP after patient receives -HD for volume removal Problems: Consultation Date/Type/Reason Admit Date/Time Dec 15, 2016 at 12:39 Initial Consult Date 12/15/16 Type of Consultation: Cardiology Reason for Consultation abnl ecg Referring Provider: DAWOOD DAHL MD Exam/Review of Systems Vital Signs Vitals Vital Signs Date Time Temp Pulse Resp B/P Pulse Ox O2 Delivery O2 Flow Rate FiO2 12/19/16 15:11 97.8 74 18 156/75 97 12/18/16 04:00 Room Air Intake and Output 12/18/16 12/18/16 12/19/16 15:00 23:00 07:00 Intake Total 800 ml 700 ml Balance 800 ml 700 ml Exam Review of Systems: CONSTITUTIONAL: No fevers, chills. PULMONARY: No sob CARDIOVASCULAR: No chest pain/palpitations GASTROINTESTINAL: No nausea/vomiting. GENITOURINARY: No hematuria/dysuria. MUSCULOSKELETAL: No myagias/arthalgias. PSYCHIATRIC: The patient denies depression. NEUROLOGIC: No weakness Constitutional: alert, oriented Psych: no complaints Head: normocephalic ENMT: mucosa pink and moist Neck: jvd (9 cm water), supple Respiratory: diminished breath sounds (at bases/B) Cardiovascular: regular rate and rhythm Gastrointestinal: non-tender, soft Musculoskeletal: muscle tone (normal) Extremities: edema (trace/B) Neurological: other (No focal deficits) Results Result Diagram: 12/17/16 0617 12/18/162039 Results 24 hrs Laboratory Tests Test 12/18/16 18:04 12/18/16 20:40 12/18/16 21:11 12/18/16 23:07 Bedside Glucose 147 196 213 Anion Gap 25 H Blood Urea Nitrogen 92 H Calcium Level 8.0 L Carbon Dioxide Level 24 Chloride Level 96 L Creatinine 10.71 H Glucose Level 181 Potassium Level 5.9 H Sodium Level 139 Test 12/19/16 04:19 12/19/16 08:01 12/19/16 11:46 Bedside Glucose 140 191 157 Medications Medications Current Medications Diagnostic Test (Pha) (Accucheck) 1 ea 02 XX Last administered on 12/19/16 02: 00; Admin Dose 1 EA; Start 12/16/16 at 02:00 Miscellaneous Information 1 ea NOTE XX ; Start 12/15/16 at 14:30 Glucose (Glutose) 15 gm Q15M PRN PO DECREASED GLUCOSE; Start 12/15/16 at 14:30 Glucose (Glutose) 22.5 gm Q15M PRN PO DECREASED GLUCOSE; Start 12/15/16 at 14: 30 Dextrose (D50w Syringe) 25 ml Q15M PRN IV DECREASED GLUCOSE; Start 12/15/16 at 14:30 Dextrose (D50w Syringe) 50 ml Q15M PRN IV DECREASED GLUCOSE; Start 12/15/16 at 14:30 Glucagon (Glucagen) 1 mg Q15M PRN IM DECREASED GLUCOSE; Start 12/15/16 at 14:30 Glucose (Glutose) 15 gm Q15M PRN BUCCAL DECREASED GLUCOSE; Start 12/15/16 at 14 :30 Carvedilol (Coreg) 6.25 mg BID PO Last administered on 12/18/16 21:16; Admin Dose 6.25 MG; Start 12/15/16 at 21:00 Cinacalcet (Sensipar) 30 mg DAILY PO Last administered on 12/19/16 08:40; Admin Dose 30 MG; Start 12/16/16 at 09:00 Olanzapine (Zyprexa) 5 mg DAILY PO Last administered on 12/19/16 08:40; Admin Dose 5 MG; Start 12/16/16 at 09:00 Tramadol HCl (Ultram) 50 mg BID PRN PO PAIN; Start 12/15/16 at 20:00 Zolpidem Tartrate (Ambien) 5 mg QHS PRN PO INSOMNIA Last administered on 22:41; Admin Dose 5 MG; Start 12/15/16 at 20:00 Ondansetron HCl (Zofran Inj) 4 mg Q6H PRN IV NAUSEA AND/OR VOMITING; Start 08/23 at 20:00 Acetaminophen (Tylenol Tab) 650 mg Q6H PRN PO PAIN LEVEL 1-3 OR FEVER; Start at 20:00 Acetaminophen/ Hydrocodone Bitart ([place] (5/325)) 1 tab Q6H PRN PO MODERATE PAIN LEVEL 4-6 Last administered on 12/17/16 19:45; Admin Dose 1 TAB; Start 08/23 at 20:00 Docusate Sodium (Colace) 100 mg Q12H PRN PO CONSTIPATION Last administered on 20:23; Admin Dose 100 MG; Start 12/15/16 at 20:00 Amlodipine Besylate (Norvasc) 5 mg BID PO Last administered on 12/18/16 21:16 ; Admin Dose 5 MG; Start 12/16/16 at 21:00 Pantoprazole (Protonix Tab) 40 mg DAILY@06 PO Last administered on 12/19/16 06 :56; Admin Dose 40 MG; Start 12/18/16 at 06:00 MY MENDEZ Dec 19, 2016 15:24
== END 2016-12-19 19:07 | disposition home or self-care (01) | DRG 640 ==
LOC: E/R 09:03 → MS4 12:39 → TEL 17:11
PROVIDERS: ADMIT Internal Medicine Nephrology; ATTEND Internal Medicine Nephrology
PROC: 5A1D60Z (ICD-10-PCS; principal; 2016-12-15)
DX: E87.5 Hyperkalemia (principal); N18.6 End stage renal disease; I12.0 Hypertensive chronic kidney disease with stage 5 chronic kidney disease or end stage renal disease; E11.22 Type 2 diabetes mellitus with diabetic chronic kidney disease; Z99.2 Dependence on renal dialysis; R60.1 Generalized edema; D72.829 Elevated white blood cell count, unspecified; R25.2 Cramp and spasm; Z91.14 Patient's other noncompliance with medication regimen; D64.9 Anemia, unspecified
CPT/HCPCS: 36415; 70450; 71010; 72100; 80048; 80053; 80061; 82550; 82553; 82607; 82962; 83036; 83735; 84100; 84132; 84443; 84484; 85025; 85610; 85730; 87081; 90935; 93005; 93306; 93922; 96374; 96375; 97110; 97116; 97162; 97530; C9113; J0610; J1170; J1815; J2060; J2405

== ENCOUNTER 2018-03-14 07:40 | Day surgery (SDC) | END 2018-03-14 10:35 | disposition home or self-care (01) ==

== ENCOUNTER 2018-06-09 19:11 | Emergency (ER) | END 2018-06-09 22:15 | disposition home or self-care (01) ==

== ENCOUNTER 2018-09-15 05:31 | Observation (INO) | END 2018-09-15 17:40 | disposition home or self-care (01) ==

== ENCOUNTER 2018-09-26 12:16 | Emergency (ER) | END 2018-09-26 14:16 | disposition home or self-care (01) ==

== ENCOUNTER 2018-10-03 08:20 | Observation (INO) | payer MEDICARE, OTHER ==
[~2018-10-03] VITALS: Ht 172.7 cm; Wt 91.9 kg
[2018-10-03] VITALS (35 sets, daily range): BP systolic 136–212; BP diastolic 52–94; PULSE 82–103; RESP 17–35; Ht 172.7 cm; Wt 91.9 kg
[~2018-10-03 08:20] MED LIST changes: +ALBU18HF IN; +AMLO-145 PO; -AMLO5TAB4 PO; -AZIT250T94 PO; +CA CHLORIDE 10% 10 ML SYRINGE ONE; +CEPH-443 PO; +DULO20CA17 ORAL; +FLUT16SP17 NASAL; +GABA-526 ORAL; +LIDOCAINE 2% (SDV) 5 ML INJ ONE; +SERT-165 ORAL; +SEVOFLURANE 15 MIN ONE; +SIMV20TA2 PO; -TRAM-40 PO; +TRAM50TA PO; -ZOC20 PO; -ZOLP5TAB6 PO; +ZOLP5TAB7 PO
[2018-10-03] MEDS ORDERED: CARV6.2579 PO (08:59)
[2018-10-03] MEDS ORDERED: HYDR-3672 PO (09:00)
[2018-10-03] MEDS ORDERED: ROSU10TA55 PO (09:00)
[2018-10-03] MEDS ORDERED: GLIM4TAB PO (09:00)
[2018-10-03] MEDS ORDERED: ESOM40CA PO (09:08)
[2018-10-03] MEDS ORDERED: TRAM50TA PO (09:08)
[2018-10-03] MEDS ORDERED: DULO20CA43 PO (09:08)
[2018-10-03] MEDS ORDERED: COMBIG5 BOTH EYES (09:09)
--- NOTE | 2018-10-03 10:07 | NUR ---
DR. PRICE AND DR. HARTLEY AWARE THAT CRITICAL LAB VALUES: K+6.1 PTT 42. WITH ORDERS AND CARRIED OUT.
--- NOTE | 2018-10-03 10:39 | HPN ---
Date/Time of Note Date/Time of Note DATE: 10/03/18 TIME: 10:39 Interval H&P Admission Note Pt. seen H&P reviewed: No system changes MY PRICE MD Oct 03, 2018 10:39
--- NOTE | 2018-10-03 10:50 | NUR ---
GAVE REGULAR INSULIN 10 UNITS I. V. AND 1 AMPULE OF D50 ORDERED.
[2018-10-03] MEDS ORDERED: INSULIN REGULAR, HUMAN 100 UNIT/1 ML 3ML VIAL IV ONE (11:00)
[2018-10-03] MEDS ORDERED: DEXTROSE 50% 50 ML SYRINGE IV ONE (11:00)
[2018-10-03] MEDS ORDERED: FENTAnyl 50 MCG/ML VIAL ONE (11:11)
[2018-10-03] MEDS ORDERED: PROPOFOL 20 ML ONE (11:12)
[2018-10-03] MEDS ORDERED: CEFAZOLIN 1 GM INJ ONE (11:12)
[2018-10-03] MEDS ORDERED: MIDAZOLAM 1 MG/ML 2 ML INJ ONE (11:13)
[2018-10-03] MEDS ORDERED: METOCLOPRAMIDE 10 MG INJ ONE (11:13)
--- NOTE | 2018-10-03 12:29 | PREAC ---
Date/Time of Note Date/Time of Note DATE: 10/03/18 TIME: 12:23 Anesthesia Eval and Record Evaluation Time Pre-Procedure Interview DATE: 10/03/18 TIME: 12:23 Age 72 Sex male NPO: 8 hrs Preoperative diagnosis AV fistula pseudoaneurysm Planned procedure AV fistula ligation Past Medical History Past Medical History: Includes Cardio: HTN, Dyslipidemia, CHF Endo: Diabetes Pulm: COPD, Sleep Apnea, Asthma Neuro: Peripheral neuropathy Renal: ESRD on dialysis, HD last: (10/01) Psych: Depression, Anxiety, Other (taking olanzapine for mental health issues) Surgery & Anesthesia Issues Significant blood loss Meds Anticoagulation: No Beta Jamilah within 24 hr: Yes Reported Medications Brimonidine/Timolol* (Combigan*) 5 Ml Drops, 1 DROP BOTH EYES BID, BOTTLE 10/03/18 Duloxetine Hcl* (Cymbalta*) 20 Mg Capsule.dr, 20 MG PO DAILY, CAP 10/03/18 Esomeprazole Mag Trihydrate (Nexium) 40 Mg Capsule.dr, 40 MG PO DAILY, #30 CAP 10/03/18 Tramadol Hcl* (Ultram*) 50 Mg Tablet, 50 MG PO TID PRN for PAIN, TAB 10/03/18 Rosuvastatin Calcium* (Crestor*) 10 Mg Tablet, 10 MG PO QHS, #30 TAB 10/03/18 Glimepiride* (Glimepiride*) 4 Mg Tablet, 4 MG PO WITH BREAKFAST DINNE, TAB 10/03/18 Hydralazine Hcl* (Hydralazine Hcl*) 50 Mg Tab, 50 MG PO Q4 PRN for ELEVATED BLOOD PRESSURE, #60 TAB 10/03/18 Carvedilol* (Carvedilol*) 6.25 Mg Tablet, 6.25 MG PO BID, #60 TAB 10/03/18 Discontinued Reported Medications Fluticasone Propionate* (Fluticasone Propionate* Nasal) 50 Mcg/[place] - 16 Gm [place].susp, 1 SPRAY NASAL DAILY 09/15/18 Duloxetine Hcl* (Duloxetine Hcl*) 20 Mg Capsule.dr, 20 MG ORAL HS 09/15/18 Sertraline Hcl* (Sertraline Hcl*) 100 Mg Tablet, 100 MG ORAL HS 09/15/18 Albuterol Sulfate* (Ventolin HFA*) 18 Gm Hfa.aer.ad, 2 PUFFS IN Q6H PRN for SHORTNESS OF BREATH 09/15/18 Gabapentin* (Gabapentin*) 600 Mg Tablet, 600 MG ORAL DAILY PRN for PAIN LEVEL 1- 5 09/15/18 Sevelamer Carbonate* (Renvela*) 800 Mg Tablet, 0.8 GM PO WITH MEALS, TAB 07/25/16 Pregabalin* (Lyrica*) 100 Mg Capsule, 100 MG PO DAILY, CAP 07/25/16 Cinacalcet* (Sensipar*) 30 Mg Tab, 30 MG PO DAILY, TAB 07/25/16 Insulin Aspart* (Novolog Insulin Pen*) 100 Unit/Ml Soln, 0 SC .SLIDING SCALE AC, EA WITH MEALS 07/25/16 Insulin Glargine* (Lantus*) 100 Unit/Ml Soln, 0 SC DAILY, #1 VIAL SLIDING SCALE SOMETIMES TWICE A DAY 07/25/16 Omeprazole* (Omeprazole*) 20 Mg Capsule.dr, 20 MG PO BID, #60 CAP 07/25/16 Glimepiride* (Glimepiride*) 4 Mg Tablet, 4 MG PO WITH BREAKFAST DINNE, TAB 07/25/16 Tramadol Hcl* (Ultram*) 50 Mg Tablet, 50 MG PO BID PRN for PAIN, TAB 07/25/16 Gabapentin* (Gabapentin*) 100 Mg Capsule, 100 MG PO DAILY, #90 CAP 07/25/16 Zolpidem Tartrate* (Zolpidem Tartrate*) 5 Mg Tablet, 5 MG PO QHS PRN for INSOMNIA, #30 TAB 07/25/16 Carvedilol* (Carvedilol*) 6.25 Mg Tablet, 6.25 MG PO QAM, TAB 04/12/15 Olanzapine* (Zyprexa*) 5 Mg Tablet, 5 MG PO DAILY, TAB 06/14/14 Simvastatin (Simvastatin) 20 Mg Tablet, 20 MG PO DAILY 06/23/11 Discontinued Scripts Cephalexin* (Keflex*) 500 Mg Capsule, 500 MG PO QID for 7 Days, CAP Prov:CHRISTIANA BAIG MD 09/26/18 Amlodipine Besylate* (Amlodipine Besylate*) 5 Mg Tablet, 5 MG PO BID for 28 Days, TAB Prov:DAWOOD DAHL MD 12/19/16 Meds reviewed: Yes Allergies Coded Allergies: iodine (Verified Allergy, Unknown, 10/03/18) Allergies Reviewed: Yes Labs/Studies Labs Reviewed: Reviewed by anesthesiologist Result Diagram: 10/03/1805 10/03/18904 Laboratory Tests 10/03/18 09:05 test: Negative Studies: ECG, CXR Pre-procedure Exam Last vitals Vital Signs Date Temp Pulse Resp B/P (MAP) Pulse Ox O2 O2 Flow FiO2 Time Delivery Rate 10/03/18 98.1 82 18 167/74 96 Room Air 09:42 (105) Airway: Adequate mouth opening, Adequate thyromental dist Mallampati: Mallampati III Teeth: Normal Lung: Normal Heart: Normal ASA Physical Status ASA physical status: 4 Emergency: None Planned Anesthetic General/MAC: LMA Planned Pain Management Single shot nerve block, Parenteral pain med, Local by surgeon Pre-operative Attestations Prior to commencing anesthesia and surgery, the patient was re-evaluated, there was verification of: *The patient's identity *The results of appropriate recent lab work and preoperative vital signs *The above evaluation not changing prior to induction *Anesthetic plan, risk benefits, alternative and complications discussed with patient/family; questions answered; patient/family understands, accepts and wishes to proceed. Medical Registrar used GUILLERMO HARTLEY MD Oct 03, 2018 12:29
[2018-10-03] MEDS ORDERED: HYDROmorphONE 1 MG/5 ML IV SYRINGE IV PRN ×3 (12:30)
[2018-10-03] MEDS ORDERED: DIPHENHYDRAMINE 50 MG INJ IV PRN (12:30)
[2018-10-03] MEDS ORDERED: ONDANSETRON 4 MG INJ IV PRN ×2 (12:30→16:00)
[2018-10-03] MEDS ORDERED: FENTAnyl 50 MCG/ML VIAL IV PRN ×2 (12:30)
[2018-10-03] MEDS ORDERED: IPRATROPIUM (NEB) 0.5 MG/2.5 ML AMP HHN PRN (12:30)
[2018-10-03] MEDS ORDERED: LABETALOL HCL 20MG INJ IV PRN (12:30)
[2018-10-03] MEDS ORDERED: MIDAZOLAM 1 MG/ML 2 ML INJ IV PRN (12:30)
[2018-10-03] MEDS ORDERED: LEVALBUTEROL (NEB) 1.25 MG/0.5 ML AMP HHN PRN (12:30)
[2018-10-03] MEDS ORDERED: hydrALAzine 20 MG INJ IV PRN (12:30)
[2018-10-03] MEDS ORDERED: HALOPERIDOL 5 MG INJ IV PRN (12:30)
[2018-10-03] MEDS ORDERED: ROPIVACAINE 0.5 % 30 ML VIAL ONE (12:36)
[2018-10-03] MEDS ORDERED: THROMBIN 5000 UNIT VIAL ONE (12:41)
[2018-10-03] MEDS ORDERED: GELATIN SIZE 100 SPONGE ONE (12:41)
[2018-10-03] MEDS ORDERED: LIDOCAINE 1% (MPF) 30 ML INJ ONE (12:41)
[2018-10-03] MEDS ORDERED: HEPARIN 1000 UNITS/ML 10 ML INJ ONE (12:42)
[2018-10-03] MEDS ORDERED: LIDOCAINE 1% (MPF) 30 ML INJ INJ ONE (14:32)
[2018-10-03] MEDS ORDERED: HEPARIN 1000 UNITS/ML 10 ML INJ INJ ONE (14:32)
--- NOTE | 2018-10-03 14:50 | NUR ---
RECEIVED FROM OR VIA TONIA S/P AV FISTULA REVISION LT UPPER ARM AND PERMACATH INSERTION RT. CHEST.
--- NOTE | 2018-10-03 14:54 | SIPON ---
Date/Time of Note Date/Time of Note DATE: 10/03/18 TIME: 14:52 Operative Report Preoperative Diagnosis Infected, bleeding pseudoaneurysm left arm AVF Postoperative Diagnosis same Operation/Procedure Performed excision of infected L arm AVF pseudoaneurysm, revision of AVF R IJ permacath placement using ultrasound and fluoroscopic guidance Surgeon see signature line customer support assistant none Anesthesia: general Estimated blood loss: 50 - 100 ml's Transfusion Required none Specimen infected pseudoaneurysm L arm Grafts/Implants none Complications none MY PRICE MD Oct 03, 2018 14:54
--- NOTE | 2018-10-03 15:38 | QN ---
Documentation Comment Pt seen and examined MAEVE AVINA MD Oct 03, 2018 15:38
[2018-10-03] MEDS ORDERED: DOCUSATE SODIUM 100 MG CAP PO PRN (16:00)
[2018-10-03] MEDS ORDERED: traMADol 50 MG TAB PO PRN (16:00)
[2018-10-03] MEDS ORDERED: NACL 0.9% 3 ML SYG IV SCH (16:00)
[2018-10-03] MEDS ORDERED: ACETAMINOPHEN 325 MG TAB PO PRN (16:00)
--- NOTE | 2018-10-03 16:00 | NUR ---
REPORT GIVEN TO SHARON CASTLE
--- NOTE | 2018-10-03 16:45 | NUR ---
TRANSPORTED TO . ACCOMPANIED BY TRANSPORT IN STABLE CONDITION.WITH O2/NC 2L/MIN.
[2018-10-03] MEDS ORDERED: DEXTROSE 50% 50 ML SYRINGE IV PRN ×2 (17:00)
[2018-10-03] MEDS ORDERED: GLUCOSE GEL 15 GRAM TUBE PO PRN ×2 (17:00)
[2018-10-03] MEDS ORDERED: GLUCAGON 1 MG INJ IM PRN (17:00)
[2018-10-03] MEDS ORDERED: GLUCOSE GEL 15 GRAM TUBE BUCCAL PRN (17:00)
--- NOTE | 2018-10-03 17:27 | NUR ---
Spoke with Marie for HD today, confirmation #[id number]- spoke with Nadine, staff re: STAT order. K-5.9.
[2018-10-03] MEDS: ACCU-CHEK XX SCH ×2 (17:30→21:46)
[2018-10-03] MEDS ORDERED: GLIMEPIRIDE 4 MG TAB PO SCH (18:00)
[2018-10-03] MEDS: INSULIN ASPART [NOVOLOG] 3 ML PEN SC SCH ×2 (18:22→21:00)
--- NOTE | 2018-10-03 18:56 | OPR ---
DATE OF OPERATION: 10/03/2018 PREOPERATIVE DIAGNOSES: Bleeding and infected left arm arteriovenous fistula. POSTOPERATIVE DIAGNOSES: Bleeding and infected left arm arteriovenous fistula. PROCEDURES PERFORMED: 1. Excision of infected pseudoaneurysm and revision of left arm AV fistula. 2. Placement of right internal jugular vein tunneled hemodialysis catheter using ultrasound and fluo roscopic guidance. SURGEON: My Lehman MD ANESTHESIA: General endotracheal anesthesia. ESTIMATED BLOOD LOSS: 100 mL. COMPLICATIONS: There were no intraprocedural complications. INDICATIONS: This is a 72-year-old gentleman. He has a left arm AV fistula that has been in place f or several years. It is a median cubital fistula so there is outflow through the cephalic vein and t he basilic vein. The outflow from the cephalic vein is essentially occluded. It is very pulsatile a nd has not been functional for a while. He had 2 large pseudoaneurysms in the upper arm. About a we ek ago, he came to the ER and had a little bit of irritation. It actually looks fine. I do not thin k there was anything significant. I put him on some p.o. antibiotics, but he came to my office 2 day s ago and it just looked more infected, but a lot of ulceration. I wrapped them up and brought him i n today to excise the pseudoaneurysm and to place a PermCath. His potassium when he got here today w as high, was 6.1, but when I looked at the pseudoaneurysms, now it is actually actively bleeding, so we decided to proceed as an emergency to excise the pseudoaneurysm but prevent it from hemorrhaging a nd place a PermCath, so he can have dialysis. DESCRIPTION OF PROCEDURE: The patient was brought to the operating room, placed on the table in supi ne position. After induction of general endotracheal anesthesia and a block, the left arm was preppe d and draped in the usual sterile fashion. I began by making an elliptical incision over this large pseudoaneurysm in the lower part of the upper arm, infected pseudoaneurysm. I excised the skin and t he pseudoaneurysm itself en bloc. I dissected down through the subcutaneous tissue using electrocaut brock. The inflow and outflow segments of the vein were ligated with 0 silk tie. The inflow segment I ligated with 3-0 silk ties. The outflow segment, I ligated with 1 and then using electrocautery, I excised the whole pseudoaneurysm along with an elliptical wedge of skin that was infected. The wound base was nice and clean. Actually, the vein was right on the muscle and those are all clean and hea lthy looking. He had good hemostasis using electrocautery. I then closed the incision using a runni ng 3-0 nylon vertical mattress suture. There is slight tension in the middle, but they came together fairly easily. I then placed a Xeroform and Kerlix and Gee wraps on the arm. I then proceeded to p sedrick polk PermCath. We prepped and draped his right neck and chest wall in the usual sterile fashion. I infiltrated over the jugular vein right at the base of the neck. Under ultrasound guidance, I iden tified the vein and I infiltrated right over the vein using about 10 mL of 1% Xylocaine. I then used an 18 gauge single wall puncture needle to enter the vein under ultrasound guidance. An 0.035 J-wir e was inserted through the vein and then down through the heart into the inferior vena cava. I left the wire in place. I made a small incision at the base of the wire and then I made another incision below the clavicle. I then tunneled a 23 cm tunneled hemodialysis catheter between the 2 incisions. I then dilated tract over the wire then placed large peel away sheath over the wire into the right a trium. I then removed the wire and the obturator and placed the end of the catheter through the peel -away sheath and then peeled the sheath away leaving the tip of the catheter in the right atrium. Th ere was good backflow from both ports and they flushed easily. I then anchored the catheter to the s kin using a 3-0 Vicryl suture and 3-0 Vicryl sutures were used to close the puncture site in the neck . I left 2 mL of 1000 unit per mL heparin in each port. Sterile dressing was applied. The patient was then extubated in the operating room and transferred to the recovery room in stable condition. Lynn wolff tolerated the procedure well without any complication. The PermCath is ready to use. The fistula will be able to use it in a few weeks once the excision site is healed accessing and now with t his recent dissection. Dictated By: MY KING/NTS Conf#: [id number] DID#: [id number] CC: DAWOOD DAHL MD; MAEVE AVINA;*[facility]*
--- NOTE | 2018-10-03 19:50 | NUR ---
EOSS: Endorsed to night nurse, patient transfer from PACU re:Ligation of DEISY AV fistula, permacath placement on right chest wall for HD tonight. keep left arm elevated. HD on going at this time. BS checked -104. Will continue to monitor.
[2018-10-03] MEDS ORDERED: BRIMONIDINE 0.2%-TIMOLOL 0.5% 5ML OPH BOTH EYES SCH (21:00)
--- NOTE | 2018-10-03 22:53 | HP ---
DATE OF ADMISSION: 10/03/2018 REASON FOR ADMISSION: The patient is admitted electively by Dr. Price due to infected bleeding pseud oaneurysm in the left arm AV fistula. The patient was seen by Dr. Price and had excision of the infe cted left arm AV pseudoaneurysm revision of the aVF. The patient had a right IJ Perm-A-Cath placemen t. The patient was currently seen in the PACU. HISTORY OF PRESENT ILLNESS: This is a 72-year-old male with a past medical history of end-stage lucas l disease on hemodialysis, was admitted due to lack of hemodialysis, hypertension, diabetes, dyslipid emia, chronic leg edema, noncompliance, presented to the hospital after being admitted by Dr. Price e lectively. The patient had above procedure done. Currently, the patient was in slight shortness of breath. The patient goes to dialysis Saturday, Saturday, Saturday and Saturday; however, the patient is supposed to get this week and dialysis sessions on Saturday and Saturday. Currently, the patient is [facility] admitted for hyperkalemia after the procedure. Potassium was 5.9. The patient was also mildly short of breath. PAST MEDICAL HISTORY: 1. Hypertension. 2. Diabetes. 3. Dyslipidemia. 4. History of memory impairment. ALLERGIES: 1. IBUPROFEN. 2. IODINE SOLUTION. SOCIAL HISTORY: Negative. FAMILY HISTORY: Noncontributory.: 1. Amlodipine. 2. Coreg. 3. Sensipar. 4. Gabapentin. 5. Amaryl. 6. Insulin. 7. Zyprexa. 8. Prilosec. 9. Pregabalin. 11. Renvela. 12. Simvastatin. SOCIAL HISTORY: No history of smoking, alcohol or any drug use. Currently lives at home with . FAMILY HISTORY: Noncontributory. REVIEW OF SYSTEMS: The patient complained of numbness in the left fistula site, had a right Perm-A-C ath placed in. PHYSICAL EXAMINATION: VITAL SIGNS: Currently, blood pressure 153/70, afebrile, heart rate 93, respirations 20. GENERAL: The patient is awake, alert, oriented, does not appear to have any acute distress. The [facility] ient has a right new Perm-A-Cath placed on the right chest wall site. HEART: Regular rhythm. LUNGS: A few coarse rhonchi. ABDOMEN: Soft, nontender, nondistended. EXTREMITIES: No clubbing, cyanosis, some 1+ edema. LABORATORY DATA: Sodium 142, potassium 6.9, chloride 93, bicarbonate 28, BUN of 94, creatinine 12.56 , total bilirubin 0.1, AST 14, ALT 14, albumin 4.3. White count 9.1, hemoglobin 9.7, platelet count 208. ASSESSMENT AND PLAN: This is a 72-year-old male who presented with: 1. Excision of the left arm AV pseudoaneurysm revision of AV fistula. 2. Malfunctioning fistula with a right IJ Perm-A-Cath placement. 3. Hyperkalemia. 4. Uremia. 5. End-stage renal disease on hemodialysis. 6. Diabetes. 7. Hypertension. 8. Noncompliance. PLAN: At this period of time, the patient will be admitted to telemetry. The patient is status post procedure. The patient will receive stat hemodialysis. Blood pressure medications will be restarte d. The rest of the treatment will depend on the patient's hospitalization course. Dictated By: MAEVE YANES/EDEL Conf#: [id number] DID#: [id number] CC: MY PRICE MD;*[facility]*
[2018-10-04] VITALS: PULSE 90
[2018-10-04] MEDS ORDERED: traMADol 50 MG TAB PO PRN
[2018-10-04] MEDS ORDERED: ACCU-CHEK XX SCH (02:00)
[2018-10-04 03:26] VITALS: BP 157/83; PULSE 93; RESP 21
[2018-10-04 04:00] VITALS: PULSE 85
--- NOTE | 2018-10-04 04:36 | NUR ---
Pt. did not sleep at all this shift, in & out of bed to chair, walked to bathroom x2 w/ cane & 1 person standby assist ; placed a call to Dr. Fortune at around 0100 for a sleeping pill as requested by pt. Asked for pain med 2x, Tramadol given which relieved pain on his back. Had hemodialysis earlier this shift, took out 2,300 cc ; pt. tolerated tx., V/S within normal limits, SR. bp was elevated to 181 systolic at the beginning while pt. was being dialyzed, it later came down to the 130's SBP w/ Coreg 6.25 mg.
[2018-10-04] MEDS ORDERED: ZOLPIDEM 5 MG TAB PO PRN (05:00)
[2018-10-04] MEDS: ACCU-CHEK XX SCH (07:00)
[2018-10-04] MEDS: INSULIN ASPART [NOVOLOG] 3 ML PEN SC SCH (07:47)
[2018-10-04 07:49] VITALS: BP 166/74; PULSE 83; RESP 20
[2018-10-04 08:53] VITALS: PULSE 93
[2018-10-04] MEDS ORDERED: NA POLYST SULFON 15 GM/60 ML BTL PO ONE (09:00)
[2018-10-04] MEDS ORDERED: DULOXETINE 20 MG CAP DR PO SCH (09:00)
--- NOTE | 2018-10-04 09:10 | NUR ---
Patient signed AMA, explained that there is no order for him to go home. Patient with elevated K-5.3-Phos level-7.3, Dr. Fortune made aware of elevated values and also patient wants to go home. Per Dr. Fortune may sign AMA. Dr. Fortune made aware that patient with permacath in place on the right wall was used for HD last night. Explained to patient the importance of staying in the hospital to correct elevated lab values, pt stated with scheduled HD in am. Charge nurse made aware. Family at bedside to take patient home.
== END 2018-10-04 09:43 | disposition left against medical advice (07) ==
LOC: SDS 08:20 → REC 15:34 → SDS 15:34 → 6WM 16:42
PROVIDERS: ADMIT Surgery Vascular Surgery; ATTEND Surgery Vascular Surgery
DX: T82.838A Hemorrhage due to vascular prosthetic devices, implants and grafts, initial encounter (principal); Y84.1 Kidney dialysis as the cause of abnormal reaction of the patient, or of later complication, without mention of misadventure at the time of the procedure; E11.9 Type 2 diabetes mellitus without complications; I13.2 Hypertensive heart and chronic kidney disease with heart failure and with stage 5 chronic kidney disease, or end stage renal disease; I50.9 Heart failure, unspecified; N18.6 End stage renal disease; E78.5 Hyperlipidemia, unspecified; J44.9 Chronic obstructive pulmonary disease, unspecified; F41.8 Other specified anxiety disorders; Z79.4 Long term (current) use of insulin
CPT/HCPCS: 35903; 36561; 71045; 80048; 80053; 82962; 83735; 84100; 84132; 85025; 85610; 85730; 87340; 88304; 90935; 94664; C1752; G0378; J0360; J0690; J1630; J1644; J1815; J2250; J2765; J2795; J3010; 99217

== ENCOUNTER 2018-10-08 13:10 | Emergency (ER) | payer MEDICARE, OTHER ==
[~2018-10-08] VITALS: Wt 80.0 kg
[~2018-10-08 13:10] MED LIST changes: -ALBU18HF IN; -AMLO-145 PO; -CA CHLORIDE 10% 10 ML SYRINGE ONE; -CEPH-443 PO; -CNC30T PO; +COMBIG5 BOTH EYES; -DULO20CA17 ORAL; +DULO20CA43 PO; +ESOM40CA PO; -FLUT16SP17 NASAL; -GABA-526 ORAL; -GABA100C14 PO; +HYDR-3672 PO; -LANT3I SC; -LIDOCAINE 2% (SDV) 5 ML INJ ONE; -LYRI100 PO; -NOVO3I SC; -OLAN5TAB5 PO; -OMEP20CA16 PO; +ROSU10TA55 PO; -SERT-165 ORAL; -SEVE800T7 PO; -SEVOFLURANE 15 MIN ONE; -SIMV20TA2 PO; -ZOLP5TAB7 PO
[2018-10-08 14:05] VITALS: BP 170/75; PULSE 90; RESP 20
[2018-10-08] MEDS ORDERED: ASPIRIN 81 MG TAB PO ONE (15:00)
[2018-10-08] MEDS ORDERED: PHENYLephrine 0.5% 15 ML NAS SPRAY NASAL ONE (15:00)
--- NOTE | 2018-10-08 18:50 | ERD ---
ER Documentation Chief Complaint Chief Complaint WEAK AFTER DIALYSIS HPI 72-year-old male with a history of hypertension, diabetes, ESRD on hemodialysis presenting via ambulance from his dialysis center after he felt generalized weak ness and muscle cramps in his legs after dialysis. They removed about 3 L of fluid. He denies any associated chest pain, dizziness, shortness of breath, fever or chills. He recently had a surgery on his left upper extremity AV fistula so he currently has a catheter in his right chest for dialysis. He denies any other associated symptoms. Patient is eager to go home. Of note, he has not taken his antihypertensives today. ROS All systems reviewed and are negative except as per history of present illness. Medications Home Meds Reported Medications Brimonidine/Timolol* (Combigan*) 5 Ml Drops, 1 DROP BOTH EYES BID, BOTTLE 10/03/18 Duloxetine Hcl* (Cymbalta*) 20 Mg Capsule.dr, 20 MG PO DAILY, CAP 10/03/18 Esomeprazole Mag Trihydrate (Nexium) 40 Mg Capsule.dr, 40 MG PO DAILY, #30 CAP 10/03/18 Tramadol Hcl* (Ultram*) 50 Mg Tablet, 50 MG PO TID PRN for PAIN, TAB 10/03/18 Rosuvastatin Calcium* (Crestor*) 10 Mg Tablet, 10 MG PO QHS, #30 TAB 10/03/18 Glimepiride* (Glimepiride*) 4 Mg Tablet, 4 MG PO WITH BREAKFAST DINNE, TAB 10/03/18 Hydralazine Hcl* (Hydralazine Hcl*) 50 Mg Tab, 50 MG PO Q4 PRN for ELEVATED BLOOD PRESSURE, #60 TAB 10/03/18 Carvedilol* (Carvedilol*) 6.25 Mg Tablet, 6.25 MG PO BID, #60 TAB 10/03/18 Discontinued Reported Medications Fluticasone Propionate* (Fluticasone Propionate* Nasal) 50 Mcg/[place] - 16 Gm [place].susp, 1 SPRAY NASAL DAILY 09/15/18 Duloxetine Hcl* (Duloxetine Hcl*) 20 Mg Capsule.dr, 20 MG ORAL HS 09/15/18 Sertraline Hcl* (Sertraline Hcl*) 100 Mg Tablet, 100 MG ORAL HS 09/15/18 Albuterol Sulfate* (Ventolin HFA*) 18 Gm Hfa.aer.ad, 2 PUFFS IN Q6H PRN for SHORTNESS OF BREATH 09/15/18 Gabapentin* (Gabapentin*) 600 Mg Tablet, 600 MG ORAL DAILY PRN for PAIN LEVEL 1- 5 09/15/18 Sevelamer Carbonate* (Renvela*) 800 Mg Tablet, 0.8 GM PO WITH MEALS, TAB 07/25/16 Pregabalin* (Lyrica*) 100 Mg Capsule, 100 MG PO DAILY, CAP 07/25/16 Cinacalcet* (Sensipar*) 30 Mg Tab, 30 MG PO DAILY, TAB 07/25/16 Insulin Aspart* (Novolog Insulin Pen*) 100 Unit/Ml Soln, 0 SC .SLIDING SCALE AC, EA WITH MEALS 07/25/16 Insulin Glargine* (Lantus*) 100 Unit/Ml Soln, 0 SC DAILY, #1 VIAL SLIDING SCALE SOMETIMES TWICE A DAY 07/25/16 Omeprazole* (Omeprazole*) 20 Mg Capsule.dr, 20 MG PO BID, #60 CAP 07/25/16 Glimepiride* (Glimepiride*) 4 Mg Tablet, 4 MG PO WITH BREAKFAST DINNE, TAB 07/25/16 Tramadol Hcl* (Ultram*) 50 Mg Tablet, 50 MG PO BID PRN for PAIN, TAB 07/25/16 Gabapentin* (Gabapentin*) 100 Mg Capsule, 100 MG PO DAILY, #90 CAP 07/25/16 Zolpidem Tartrate* (Zolpidem Tartrate*) 5 Mg Tablet, 5 MG PO QHS PRN for INSOMNIA, #30 TAB 07/25/16 Carvedilol* (Carvedilol*) 6.25 Mg Tablet, 6.25 MG PO QAM, TAB 04/12/15 Olanzapine* (Zyprexa*) 5 Mg Tablet, 5 MG PO DAILY, TAB 06/14/14 Simvastatin (Simvastatin) 20 Mg Tablet, 20 MG PO DAILY 06/23/11 Discontinued Scripts Cephalexin* (Keflex*) 500 Mg Capsule, 500 MG PO QID for 7 Days, CAP Prov:CHRISTIANA BAIG MD 09/26/18 Amlodipine Besylate* (Amlodipine Besylate*) 5 Mg Tablet, 5 MG PO BID for 28 Days, TAB Prov:DAWOOD DAHL MD 3/15/17 Allergies Allergies: Coded Allergies: iodine (Verified Allergy, Unknown, 10/08/18) PMhx/Soc History of Surgery: Yes (LEFT HIP ORIF, APPENDECTOMY) Anesthesia Reaction: No Hx Neurological Disorder: No Hx Respiratory Disorders: No Hx Cardiac Disorders: Yes (HTN) Hx Psychiatric Problems: No Hx Miscellaneous Medical Probl: Yes (SLEEP APNEA) Hx Alcohol Use: No Hx Substance Use: No Hx Tobacco Use: No Smoking Status: Never smoker FmHx Family History: No diabetes Physical Exam Vitals Vital Signs Date Temp Pulse Resp B/P (MAP) Pulse Ox O2 O2 Flow FiO2 Time Delivery Rate 10/08/18 90 20 170/75 99 Room Air 14:05 (106) 10/08/18 97.8 104 18 203/89 99 13:28 (127) Physical Exam Const: No acute distress, nontoxic. No diaphoresis Head: Atraumatic Eyes: Normal Conjunctiva ENT: Normal External Ears, Nose and Mouth. Neck: Full range of motion. No meningismus. Resp: Clear to auscultation bilaterally Cardio: Regular rate and rhythm, no murmurs. 2+ distal pulses in all 4 extremities Abd: Soft, non tender, non distended. Normal bowel sounds Skin: No petechiae or rashes Back: No midline or flank tenderness Ext: Left upper extremity AV fistula with dressing in place. No cyanosis, or edema Neur: Awake and alert, oriented x3, no facial asymmetry, moving all extremities spontaneously with grossly intact strength and sensation Psych: Normal Mood and Affect Result Diagram: 10/08/18 1353 10/08/18 1353 Results 24 hrs Laboratory Tests Test 10/08/18 13:53 White Blood Count 8.9 10^3/ul Red Blood Count 2.78 10^6/ul Hemoglobin 9.1 g/dl Hematocrit 27.2 % Mean Corpuscular Volume 97.8 fl Mean Corpuscular Hemoglobin 32.7 pg Mean Corpuscular Hemoglobin Concent 33.5 g/dl Red Cell Distribution Width 14.3 % Platelet Count 220 10^3/UL Mean Platelet Volume 10.6 fl Immature Granulocytes % 0.700 % Neutrophils % 85.7 % Lymphocytes % 4.6 % Monocytes % 7.4 % Eosinophils % 1.3 % Basophils % 0.3 % Nucleated Red Blood Cells % 0.0 /100WBC Immature Granulocytes # 0.060 10^3/ul Neutrophils # 7.6 10^3/ul Lymphocytes # 0.4 10^3/ul Monocytes # 0.7 10^3/ul Eosinophils # 0.1 10^3/ul Basophils # 0.0 10^3/ul Nucleated Red Blood Cells # 0.0 10^3/ul Sodium Level 137 mmol/L Potassium Level 4.5 mmol/L Chloride Level 89 mmol/L Carbon Dioxide Level 32 mmol/L Anion Gap 16 Blood Urea Nitrogen 55 mg/dl Creatinine 7.70 mg/dl Est Glomerular Filtrat Rate mL/min 7 mL/min Glucose Level 197 mg/dl Calcium Level 9.0 mg/dl Troponin I 0.129 ng/ml Current Medications Medications Dose Sig/Nicole Start Time Status Last (Trade) Ordered Route PRN Stop Time Admin Dose Reason Admin Hydralazine 50 mg ONCE ONCE 10/08/18 DC 10/08/18 HCl PO 14:00 10/08/18 14:12 (Apresoline) 14:01 Carvedilol 6.25 mg ONCE ONCE 10/08/18 DC 10/08/18 (Coreg) PO 14:00 10/08/18 14:13 14:01 Aspirin 162 mg ONCE ONCE 10/08/18 DC (Aspirin) PO 15:00 10/08/18 15:01 1 spray ONCE ONCE 10/08/18 DC Phenylephrine NASAL 15:00 10/08/18 HCl 15:01 (Luis-Synephri ne 0.5% [place]) Procedures/MDM EMERGENT LABS AND DIAGNOSTIC STUDIES: Lab Results above were reviewed and interpreted by me. CBC: Mild anemia, likely secondary to chronic disease. No evidence of infection CMP: Elevated BUN and creatinine, consistent with ESRD. No severe electrolyte abnormality. Troponin elevated, concerning for myocardial ischemia 12-lead EKG was interpreted by Bart Bentley MD: Sinus Rhythm with ventricular rate of 94 beats per minute with PVC Normal axis Normal intervals No acute ST or T wave changes suggestive of acute ischemia or STEMI. Radiology Results as interpreted by Radiology below were reviewed by S. N. Ekmekjian, MD: Chest x-ray: IMPRESSION: 1. Dialysis catheter in satisfactory position. 2. Atherosclerosis. 3. Clear lungs. 4. Otherwise unremarkable chest radiograph. .Chai Greenberg MD, Date Time Electronically viewed and signed by .Chai Greenebrg MD, on 10/08/2018 13:49 Initial Nursing notes reviewed. Previous Medical Records requested via the Electronic Health Record. EMERGENCY DEPARTMENT COURSE / MEDICAL DECISION MAKING: Patient is presenting with acute weakness after receiving dialysis today. Vitals were notable for uncontrolled hypertension. His workup revealed evidence of ESRD with an elevated troponin that may be secondary to his renal failure but may also be due to ACS. Aspirin was given. I recommended admission but the patient has made the decision to leave this Emergency Department and any ongoing care against the advice of the emergency physician. The patient has been informed of and verbalized understanding of the inherent risks of this decision, including , disability and he states that he understands but does not want to stay in the hospital. His granddaughter is at bedside and is trying to convince him to stay but the patient refuses. The patient explained to me the reason for wanting to sign out against medical advice which was that he just did not want to be in the hospital. The patient has the capacity to make this decision and accepts the responsibility of leaving at this time. The patient and all necessary parties have been advised that the patient may return at any time for further evaluation or treatment. The patient's condition at time of discharge is serious. Departure Diagnosis: Primary Impression: Acute weakness Additional Impression: Elevated troponin Condition: Serious Patient Instructions: Weakness, Unk Cause, Troponin Additional Instructions: You have decided to leave AGAINST MEDICAL ADVICE. If you change your mind or have worsening symptoms, please return to the ER immediately. Like we discussed, you may be having a heart attack. I cannot know for sure until more tests have been done. Please follow-up with your primary care doctor tomorrow if you decide not to come back to the ER. MARCIA BENTLEY MD Oct 08, 2018 18:50
== END 2018-10-08 15:40 | disposition left against medical advice (07) ==
LOC: E/R 13:10
DX: R53.1 Weakness (principal); R79.89 Other specified abnormal findings of blood chemistry; I12.0 Hypertensive chronic kidney disease with stage 5 chronic kidney disease or end stage renal disease; N18.6 End stage renal disease; E11.22 Type 2 diabetes mellitus with diabetic chronic kidney disease; Z79.4 Long term (current) use of insulin; Z99.2 Dependence on renal dialysis
CPT/HCPCS: 71045; 80048; 84484; 85025; 93005

== ENCOUNTER 2018-10-09 18:45 | Inpatient (IN) | payer MEDICARE, OTHER ==
[~2018-10-09] VITALS: Ht 167.6 cm; Wt 91.2 kg
--- NOTE | 2018-10-09 20:27 | ERD ---
ER Documentation Chief Complaint Chief Complaint sent by pmd for abnormal labs, hx of esrd HPI 72-year-old male was initially evaluated yesterday for generalized weakness. At that time, evaluation included an EKG which was nonspecific and a troponin that was borderline elevated. Patient was recommended for admission, but left AGAINST MEDICAL ADVICE. Patient then had outpatient lab testing showing a significant hyperkalemia and was referred back to the emergency department. Upon arrival, patient feels well having completed his dialysis yesterday as normal. He reports no current chest pain, shortness of breath, weakness or any complaints. ROS All systems reviewed and are negative except as per history of present illness. Medications Home Meds Reported Medications Brimonidine/Timolol* (Combigan*) 5 Ml Drops, 1 DROP BOTH EYES BID, BOTTLE 10/03/18 Duloxetine Hcl* (Cymbalta*) 20 Mg Capsule.dr, 20 MG PO DAILY, CAP 10/03/18 Esomeprazole Mag Trihydrate (Nexium) 40 Mg Capsule.dr, 40 MG PO DAILY, #30 CAP 10/03/18 Tramadol Hcl* (Ultram*) 50 Mg Tablet, 50 MG PO TID PRN for PAIN, TAB 10/03/18 Rosuvastatin Calcium* (Crestor*) 10 Mg Tablet, 10 MG PO QHS, #30 TAB 10/03/18 Glimepiride* (Glimepiride*) 4 Mg Tablet, 4 MG PO WITH BREAKFAST DINNE, TAB 10/03/18 Hydralazine Hcl* (Hydralazine Hcl*) 50 Mg Tab, 50 MG PO Q4 PRN for ELEVATED BLOOD PRESSURE, #60 TAB 10/03/18 Carvedilol* (Carvedilol*) 6.25 Mg Tablet, 6.25 MG PO BID, #60 TAB 10/03/18 Discontinued Reported Medications Fluticasone Propionate* (Fluticasone Propionate* Nasal) 50 Mcg/Edgar - 16 Gm Edgar.susp, 1 SPRAY NASAL DAILY 09/15/18 Duloxetine Hcl* (Duloxetine Hcl*) 20 Mg Capsule.dr, 20 MG ORAL HS 09/15/18 Sertraline Hcl* (Sertraline Hcl*) 100 Mg Tablet, 100 MG ORAL HS 09/15/18 Albuterol Sulfate* (Ventolin HFA*) 18 Gm Hfa.aer.ad, 2 PUFFS IN Q6H PRN for SHORTNESS OF BREATH 09/15/18 Gabapentin* (Gabapentin*) 600 Mg Tablet, 600 MG ORAL DAILY PRN for PAIN LEVEL 1- 5 09/15/18 Sevelamer Carbonate* (Renvela*) 800 Mg Tablet, 0.8 GM PO WITH MEALS, TAB 07/25/16 Pregabalin* (Lyrica*) 100 Mg Capsule, 100 MG PO DAILY, CAP 07/25/16 Cinacalcet* (Sensipar*) 30 Mg Tab, 30 MG PO DAILY, TAB 07/25/16 Insulin Aspart* (Novolog Insulin Pen*) 100 Unit/Ml Soln, 0 SC .SLIDING SCALE AC, EA WITH MEALS 07/25/16 Insulin Glargine* (Lantus*) 100 Unit/Ml Soln, 0 SC DAILY, #1 VIAL SLIDING SCALE SOMETIMES TWICE A DAY 07/25/16 Omeprazole* (Omeprazole*) 20 Mg Capsule.dr, 20 MG PO BID, #60 CAP 07/25/16 Glimepiride* (Glimepiride*) 4 Mg Tablet, 4 MG PO WITH BREAKFAST DINNE, TAB 07/25/16 Tramadol Hcl* (Ultram*) 50 Mg Tablet, 50 MG PO BID PRN for PAIN, TAB 07/25/16 Gabapentin* (Gabapentin*) 100 Mg Capsule, 100 MG PO DAILY, #90 CAP 07/25/16 Zolpidem Tartrate* (Zolpidem Tartrate*) 5 Mg Tablet, 5 MG PO QHS PRN for INSOMNIA, #30 TAB 07/25/16 Carvedilol* (Carvedilol*) 6.25 Mg Tablet, 6.25 MG PO QAM, TAB 04/12/15 Olanzapine* (Zyprexa*) 5 Mg Tablet, 5 MG PO DAILY, TAB 06/14/14 Simvastatin (Simvastatin) 20 Mg Tablet, 20 MG PO DAILY 06/23/11 Discontinued Scripts Cephalexin* (Keflex*) 500 Mg Capsule, 500 MG PO QID for 7 Days, CAP Prov:CHRISTIANA BAIG MD 09/26/18 Amlodipine Besylate* (Amlodipine Besylate*) 5 Mg Tablet, 5 MG PO BID for 28 Days, TAB Prov:DAWOOD DAHL MD 12/19/16 Allergies Allergies: Coded Allergies: iodine (Verified Allergy, Unknown, 10/08/18) PMhx/Soc History of Surgery: Yes (LEFT HIP ORIF, APPENDECTOMY, AV fistula) Anesthesia Reaction: No Hx Neurological Disorder: No Hx Respiratory Disorders: No Hx Cardiac Disorders: Yes (HTN) Hx Psychiatric Problems: No Hx Miscellaneous Medical Probl: Yes (SLEEP APNEA, ESRD) Hx Alcohol Use: No Hx Substance Use: No Hx Tobacco Use: No Smoking Status: Never smoker FmHx non Contributory for chief complaint Physical Exam Vitals Vital Signs Date Temp Pulse Resp B/P (MAP) Pulse Ox O2 O2 Flow FiO2 Time Delivery Rate 10/09/18 99.0 91 18 180/82 99 18:49 (114) Physical Exam GENERAL: The patient is well developed and appropriate for usual state of health in no apparent distress HEENT: Pupils equal, round, and reactive to light. EOMI. There is no scleral icterus. NECK: C-spine is soft and supple, there is no meningismus. There is no cervical lymphadenopathy. LUNGS: Clear to auscultation bilaterally. There are no rales, wheezes or rhonchi. HEART: Regular rate and rhythm, no murmurs, clicks, rubs or gallops. ABDOMEN: Soft, non-tender, non-distended. There are bowel sounds in all four quadrants. No rebound or guarding. EXTREMITIES: There is no peripheral cyanosis or edema. No focal swelling or e rythema. NEURO: The patient moves all four extremities with 5/5 strength. Cranial nerves II - XII are intact. Normal gait. Alert and oriented SKIN: There is no apparent rash or petechiae. HEME/LYMPHATIC: There is no evidence of excessive bruising or lymphedema. PSYCHIATRIC: The patient does not appear anxious or depressed. Result Diagram: 10/09/18192910/09/181929 Results 24 hrs Laboratory Tests Test 10/09/18 19:30 White Blood Count 7.0 10^3/ul Red Blood Count 2.80 10^6/ul Hemoglobin 9.1 g/dl Hematocrit 27.8 % Mean Corpuscular Volume 99.3 fl Mean Corpuscular Hemoglobin 32.5 pg Mean Corpuscular Hemoglobin Concent 32.7 g/dl Red Cell Distribution Width 14.5 % Platelet Count 207 10^3/UL Mean Platelet Volume 9.9 fl Immature Granulocytes % 0.700 % Neutrophils % 78.5 % Lymphocytes % 7.6 % Monocytes % 10.9 % Eosinophils % 1.7 % Basophils % 0.6 % Nucleated Red Blood Cells % 0.0 /100WBC Immature Granulocytes # 0.050 10^3/ul Neutrophils # 5.5 10^3/ul Lymphocytes # 0.5 10^3/ul Monocytes # 0.8 10^3/ul Eosinophils # 0.1 10^3/ul Basophils # 0.0 10^3/ul Nucleated Red Blood Cells # 0.0 10^3/ul Sodium Level 136 mmol/L Potassium Level 6.3 mmol/L Chloride Level 90 mmol/L Carbon Dioxide Level 31 mmol/L Anion Gap 15 Blood Urea Nitrogen 88 mg/dl Creatinine 11.18 mg/dl Est Glomerular Filtrat Rate mL/min 5 mL/min Glucose Level 146 mg/dl Calcium Level 8.6 mg/dl Troponin I 0.138 ng/ml Current Medications Medications Dose Sig/Nicole Start Time Status Last (Trade) Ordered Route PRN Stop Time Admin Dose Reason Admin Aspirin 325 mg ONCE ONCE 10/09/18 (Aspirin) PO 20:30 10/09/18 20:31 Procedures/MDM Patient was taken to a room, seen and evaluated. Comfort measures were initiated. Diagnostic tests were ordered and reviewed. 3 LEAD RHYTHM STRIP: Normal sinus rhythm without ectopy EK lead EKG reviewed by myself: Normal Sinus Rhythm Normal [place] and intervals Nonspecific ST and T wave changes without ST elevation Impression: Nonspecific EKG without evidence of obvious ischemia or hyperkalemic changes RADIOLOGY: Reviewed with the radiologist CONSULTATION: Dr. Dahl's team was notified for admission REEVALUATION: 2024: Diagnostic tests were appreciated and discussed with the patient. He remained comfortable in appearance and arrangements were made for hospitalization. MEDICAL DECISION MAKIN-year-old male presents the emergency department for evaluation of abnormal lab tests including hyperkalemia and an elevated troponin. Patient does have a hyperkalemia, but no evidence of EKG changes. From the standpoint of his kidney disease, he shows no evidence of fluid overload or significant acidosis. He does also have an elevated troponin, which is even more elevated than yesterday. Again, this may be related to his renal disease, but as it is ongoing and elevated, it certainly requires investigation. Patient seems to be clinically stable with no evidence of chest pain or shortness of breath but will be admitted for dialysis, monitoring of his I's and his troponin. Departure Diagnosis: Primary Impression: Elevated troponin Additional Impression: Renal failure Condition: SUZIE Hutchins Oct 09, 2018 20:27
[2018-10-09] MEDS ORDERED: ASPIRIN 325 MG TAB PO ONE (20:30)
[2018-10-09] MEDS ORDERED: NA POLYST SULFON 15 GM/60 ML BTL PO ONE (21:00)
[2018-10-10] VITALS (32 sets, daily range): BP systolic 125–235; BP diastolic 55–98; PULSE 76–95; RESP 13–28; Ht 167.6 cm; Wt 91.2 kg
[2018-10-10] MEDS ORDERED: ACETAMINOPHEN 650 MG SUPP PR PRN
[2018-10-10] MEDS ORDERED: BISACODYL (EC) 5 MG TAB PO PRN
[2018-10-10] MEDS ORDERED: ACETAMINOPHEN 325 MG TAB PO PRN
[2018-10-10] MEDS ORDERED: traMADol 50 MG TAB PO PRN
[2018-10-10] MEDS ORDERED: MAGNESIUM HYDROXIDE 30ML CUP PO PRN
[2018-10-10] MEDS ORDERED: DOCUSATE SODIUM 100 MG CAP PO PRN
[2018-10-10] MEDS ORDERED: ONDANSETRON 4 MG INJ IV PRN
[2018-10-10] MEDS ORDERED: NACL 0.9% 3 ML SYG IV SCH
[2018-10-10] MEDS ORDERED: ZOLPIDEM 5 MG TAB PO PRN
[2018-10-10] MEDS ORDERED: GLUCAGON 1 MG INJ IM PRN (00:30)
[2018-10-10] MEDS ORDERED: DEXTROSE 50% 50 ML SYRINGE IV PRN ×2 (00:30)
[2018-10-10] MEDS ORDERED: GLUCOSE GEL 15 GRAM TUBE PO PRN ×2 (00:30)
[2018-10-10] MEDS ORDERED: GLUCOSE GEL 15 GRAM TUBE BUCCAL PRN (00:30)
[2018-10-10] MEDS: ACCU-CHEK XX SCH (01:29)
[2018-10-10] MEDS ORDERED: HEPARIN 1000 UNITS/ML 10 ML INJ CATHETER ONE (05:00)
[2018-10-10] MEDS: INSULIN ASPART [NOVOLOG] 3 ML PEN SC SCH ×4 (07:35→20:59)
[2018-10-10] MEDS: DULOXETINE 20 MG CAP DR PO SCH (08:44)
[2018-10-10] MEDS: BRIMONIDINE 0.2%-TIMOLOL 0.5% 5ML OPH BOTH EYES SCH ×2 (08:44→21:00)
[2018-10-10] MEDS: FAMOTIDINE 20 MG TAB PO SCH (08:44)
[2018-10-10] MEDS: ASPIRIN (EC) 81 MG TAB PO SCH (08:44)
[2018-10-10] MEDS: ENOXAPARIN 30 MG/0.3 ML SYG SC SCH (08:46)
--- NOTE | 2018-10-10 10:31 | HP ---
Date/Time of Note Date/Time of Note DATE: 10/10/18 TIME: 10:31 Assessment/Plan VTE Prophylaxis Risk score (from Ns)>0 risk: 3 SCD applied (from Ns): Yes Pharmacological prophylaxis: NA/contraindicated Pharm contraindication: low risk/ambulating Lines/Catheters IV C[facility]from [facility] atul cath Assessment/Plan Hospital Course 1. Chest pain, r/o coronary syndrome. trop. are negative. 2. ESRD on HD 3. Hypertension 4. DM type II 5. Insomnia 6. S/p pelvis reconstruction 1994 7. S/p left arm AV fistula, immature 8. Obesity 9. Anemia 10. walking difficulties 11. hepatitis B Assessment/Plan -telemetry service -cardiology consult dr Rogers called -c/w HD -DVT prophylaxis Lovenox GI prophylaxis Famotidine -c/w iron supplemetns -fall precaution Result Diagram: 10/10/18 0839 10/10/18 0839 Results 24hrs Laboratory Tests Test 10/09/18 19:30 10/10/18 00:22 10/10/18 01:26 10/10/18 04:53 White Blood Count 7.0 # Red Blood Count 2.80 L Hemoglobin 9.1 L Hematocrit 27.8 L Mean Corpuscular Volume 99.3 Mean Corpuscular 32.5 Hemoglobin Mean Corpuscular 32.7 Hemoglobin Concent Red Cell Distribution 14.5 Width Platelet Count 207 Mean Platelet Volume 9.9 Immature Granulocytes % 0.700 H Neutrophils % 78.5 H Lymphocytes % 7.6 L Monocytes % 10.9 Eosinophils % 1.7 Basophils % 0.6 Nucleated Red Blood 0.0 Cells % Immature Granulocytes # 0.050 H Neutrophils # 5.5 Lymphocytes # 0.5 L Monocytes # 0.8 Eosinophils # 0.1 Basophils # 0.0 Nucleated Red Blood 0.0 Cells # Sodium Level 136 Potassium Level 6.3 *H Chloride Level 90 L Carbon Dioxide Level 31 Anion Gap 15 H Blood Urea Nitrogen 88 #H Creatinine 11.18 #H Est Glomerular Filtrat 5 L Rate mL/min Glucose Level 146 # Calcium Level 8.6 Troponin I 0.138 *H 0.142 *H 0.120 Creatine Kinase 156 141 Creatine Kinase Index 1.3 1.2 Creatinine Kinase MB 1.96 1.65 (Mass) Bedside Glucose 142 Hemoglobin A1c 6.9 H Triglycerides Level 137 Cholesterol Level 105 LDL Cholesterol, 55 Calculated HDL Cholesterol 23 L Cholesterol/HDL Ratio 4.5 Hepatitis B Surface NEGATIVE Antigen Hepatitis B Surface POSITIVE H Antibody Test 10/10/18 07:38 10/10/18 08:39 Bedside Glucose 104 White Blood Count 4.8 # Red Blood Count 2.89 L Hemoglobin 9.6 L Hematocrit 28.6 L Mean Corpuscular Volume 99.0 Mean Corpuscular 33.2 H Hemoglobin Mean Corpuscular 33.6 Hemoglobin Concent Red Cell Distribution 14.5 Width Platelet Count 225 Mean Platelet Volume 10.3 Immature Granulocytes % 0.800 H Neutrophils % 74.8 Lymphocytes % 7.9 L Monocytes % 13.2 H Eosinophils % 2.5 Basophils % 0.8 Nucleated Red Blood 0.0 Cells % Immature Granulocytes # 0.040 H Neutrophils # 3.6 Lymphocytes # 0.4 L Monocytes # 0.6 Eosinophils # 0.1 Basophils # 0.0 Nucleated Red Blood 0.0 Cells # Sodium Level 139 Potassium Level 4.1 # Chloride Level 94 L Carbon Dioxide Level 29 Anion Gap 16 H Blood Urea Nitrogen 48 #H Creatinine 7.44 #H Est Glomerular Filtrat 7 L Rate mL/min Glucose Level 137 Calcium Level 10.2 HPI/ROS Admit Date/Time Admit Date/Time Oct 09, 2018 at 23:39 Hx of Present Illness This 72-year-old male with ESRD on HD, hypertension, was initially evaluated in ER for generalized weakness and chest pain. At that time, evaluation included an EKG which was nonspecific and a troponin that was borderline elevated. Patient was recommended for admission, but left AGAINST MEDICAL ADVICE. Patient then had outpatient lab testing showing a significant hyperkalemia and was referred back to the emergency department. Upon arrival, patient feels well having completed his dialysis yesterday as normal. He reports no current chest pain, shortness of breath, weakness or any complaints. ROS Constitutional: improved Respiratory: cough, pleuritic pain, shortness of breath; No no complaints, No pain, No sputum, No wheezing, No other Cardiovascular: chest pain, edema, lightheadedness; No no complaints, No orthopenea, No palpitations, No paroxysmal nocturnal dyspnea, No other PMH/Family/Social Past Medical History Medical History: congestive heart failure, hypertension, renal disease Medications Current Medications Brimonidine/ Timolol (Combigan Oph) 1 drop BID BOTH EYES Last administered on 10/10/18at 08:44; Admin Dose 1 DROP; Start 10/10/18 at 09:00 Carvedilol (Coreg) 6.25 mg BID PO Last administered on 10/10/18at 07:42; Admin Dose 6.25 MG; Start 10/10/18 at 09:00 Duloxetine HCl (Cymbalta) 20 mg DAILY PO Last administered on 10/10/18at 08:44; Admin Dose 20 MG; Start 10/10/18 at 09:00 Hydralazine HCl (Apresoline) 50 mg Q4 PRN PO ELEVATED BLOOD PRESSURE Last administered on 10/10/18at 05:21; Admin Dose 50 MG; Start 10/10/18 at 00:00 Tramadol HCl (Ultram) 50 mg TID PRN PO PAIN; Start 10/10/18 at 00:00 IV Flush (NS 3 ml) 3 ml PER PROTOCOL IV ; Start 10/10/18 at 00:00 Ondansetron HCl (Zofran Inj) 4 mg Q6H PRN IV NAUSEA AND/OR VOMITING; Start 10/10/18 at 00:00 Acetaminophen (Tylenol Tab) 650 mg Q6H PRN PO PAIN LEVEL 1-3 OR FEVER; Start 10/10/18 at 00:00 Acetaminophen (Tylenol Supp) 650 mg Q6H PRN DE PAIN LEVEL 1-3 OR FEVER; Start 10/10/18 at 00:00 Docusate Sodium (Colace) 100 mg Q12H PRN PO CONSTIPATION; Start 10/10/18 at 00:00 Magnesium Hydroxide (Milk Of Mag) 30 ml DAILY PRN PO CONSTIPATION; Start 10/10/18 at 00:00 Bisacodyl (Dulcolax) 5 mg DAILY PRN PO CONSTIPATION; Start 10/10/18 at 00:00 Zolpidem Tartrate (Ambien) 5 mg QHS PRN PO SLEEP; Start 10/10/18 at 00:00 Famotidine (Pepcid) 20 mg DAILY PO Last administered on 10/10/18at 08:44; Admin Dose 20 MG; Start 10/10/18 at 09:00 Enoxaparin Sodium (Lovenox) 30 mg DAILY SC Last administered on 10/10/18at 08:46; Admin Dose 30 MG; Start 10/10/18 at 09:00 Diagnostic Test (Pha) (Accu-Chek) 1 ea 02 XX Last administered on 10/10/18at 01:29; Admin Dose 1 EA; Start 10/10/18 at 02:00 Insulin Aspart (Novolog Insulin Pen) NOVOLOG *MILD* ALGORITHM WITH MEALS BEDTIME SC ; Start 10/10/18 at 07:35 Aspirin (Halfprin) 81 mg DAILY PO Last administered on 10/10/18at 08:44; Admin Dose 81 MG; Start 10/10/18 at 09:00 Miscellaneous Information 1 ea NOTE XX ; Start 10/10/18 at 00:30 Glucose (Glutose) 15 gm Q15M PRN PO DECREASED GLUCOSE; Start 10/10/18 at 00:30 Glucose (Glutose) 22.5 gm Q15M PRN PO DECREASED GLUCOSE; Start 10/10/18 at 00:30 Dextrose (D50w Syringe) 25 ml Q15M PRN IV DECREASED GLUCOSE; Start 10/10/18 at 00:30 Dextrose (D50w Syringe) 50 ml Q15M PRN IV DECREASED GLUCOSE; Start 10/10/18 at 00:30 Glucagon (Glucagen) 1 mg Q15M PRN IM DECREASED GLUCOSE; Start 10/10/18 at 00:30 Glucose (Glutose) 15 gm Q15M PRN BUCCAL DECREASED GLUCOSE; Start 10/10/18 at 00:30 Coded Allergies: iodine (Verified Allergy, Unknown, 10/09/18) Past Surgical History Past Surgical Hx: other (pelvis reconstruction 1994, left arm AV fistula 2017) Social History Alcohol Use: none Smoking Status: Never smoker Drug Use: none Exam/Review of Systems Vital Signs Vitals Vital Signs Date Temp Pulse Resp B/P (MAP) Pulse Ox O2 O2 Flow FiO2 Time Delivery Rate 10/10/18 98.1 83 18 150/69 97 09:28 (96) 10/10/18 Room Air 08:32 Intake and Output 10/09/18 10/09/18 10/10/18 1515:00 23:00 07:00 IntakeIntake Total 150 ml OutputOutput Total 200 ml BalanceBalance -50 ml Exam Exam right chest Permcath Constitutional: alert, oriented Eyes: nl conjunctiva Neck: supple Respiratory: clear to auscultation Cardiovascular: regular rate and rhythm Extremities: other (left arm AV fistula) FAIZA NUNO Oct 10, 2018 10:31
[2018-10-10] MEDS: POLYSACCHARIDE IRON COMPLEX CAP PO SCH ×2 (14:41→20:58)
[2018-10-10] MEDS ORDERED: NITROGLYCERIN (SL) 0.4 MG TAB SL PRN (19:30)
--- NOTE | 2018-10-10 20:33 | RADRPT ---
Echocardiogram Report Patient Name: MICHAEL GUTHRIE Gender: Male Date: 1945 Study Date: 10-Oct-2018 [place] Operator: Jessika Escobar RDCS Location: 119 Ref. Physician: DAWOOD DAHL Quality: Adequate Procedures: Transthoracic echocardiogram with complete 2D, M-Mode, and doppler examination. Indications: Coronary Artery Disease. 2D/M Mode Doppler Measurement Value Normal Ranges Measurement Value Normal Ranges LVIDd 2D 5.2 3.5 - 5.6 cm MARY VTI 1.8 cm2 LVIDs 2D 2.8 2.1 - 4.1 cm AV Mean Abdirahman 1.5 m/sec LVPWd 2D 1.1 0.6 - 1.1 cm AV Mean PG 11.0 mmHg IVSd 2D 1.0 0.6 - 1.1 cm AV VTI 50.4 cm AoR Diam 2D 3.2 2.0 - 3.7 cm LVOT Mean Abdirahman 0.8 m/sec LA/Ao 2D 1 0 - 1 LVOT Mean PG 3.0 mmHg LA Dimen 2D 4.3 2.3 - 4.0 cm LVOT Peak Abdirahman 1.3 m/sec LVOT Diam 2.1 cm LVOT Peak PG 7.0 mmHg MV E Peak Abdirahman 1.2 m/sec MV A Peak Abdirahman 1.4 m/sec MV E/A 0.8 MV Decel Time 109 msec MV E/A 0.8 TR Peak Abdirahman 3.9 m/sec TR Peak PG 60.0 mmHg RVSP 75.0 mmHg RA Pressure 15.0 Findings Left Ventricle: Normal left ventricular systolic function. Normal left ventricular cavity size. Mild concentric left ventricular hypertrophy. Ejection fraction is visually estimated at 5560 %. Right Ventricle: Normal right ventricular size. Normal right ventricular systolic function. Left Atrium: There is mild enlargement of left atrium. Right Atrium: The right atrium is normal in size. Mitral Valve: Mitral valve leaflets appear mildly thickened. Mild mitral annular calcification. Mild to moderate mitral valve regurgitation. Aortic Valve: Mild aortic stenosis. Aortic valve Max velocity 2.42 m/sec. Max PG 23.50 mmHg. Mean PG 11.00 mmHg. Aortic valve area 1.80 cm2. No aortic regurgitation. Tricuspid Valve: Tricuspid valve not well visualized. Estimated peak PA systolic pressure 75 mmHg. There is mild tricuspid regurgitation. Pulmonic Valve: Normal pulmonic valve appearance. Pericardium: Normal pericardium with no significant pericardial effusion. Aorta: Normal aortic root. IVC: Dilated IVC without respiratory collapse consistent with elevated right atrial pressure. Conclusions Normal left ventricular systolic function. Normal left ventricular cavity size. Mild concentric left ventricular hypertrophy. Ejection fraction is visually estimated at 55%. There is mild enlargement of left atrium. Mitral valve leaflets appear mildly thickened. Mild mitral annular calcification. Mild to moderate mitral valve regurgitation. Mild aortic stenosis. Aortic valve Max velocity 2.42 m/sec. Max PG 23.50 mmHg. Mean PG 11.00 mmHg. Aortic valve area 1.80 cm2. No aortic regurgitation. Tricuspid valve not well visualized. Estimated peak PA systolic pressure 75 mmHg. There is mild tricuspid regurgitation. Electronically Signed By: Greg Rogers 10-Oct-2018 20:32:52 -0800 Patient Name: MICHAEL GUTHRIE Study Date: 10-Oct-2018 [id number]
[2018-10-11] VITALS (10 sets, daily range): BP systolic 103–157; BP diastolic 71–88; PULSE 69–85; RESP 18–19
[2018-10-11] MEDS: ACCU-CHEK XX SCH (02:00)
--- NOTE | 2018-10-11 02:02 | CONS ---
DATE OF ADMISSION: 10/09/2018 DATE OF CONSULTATION: 10/10/2018 REASON FOR CONSULTATION: Positive troponin, assess significance. REQUESTING PHYSICIAN: Dr. Avina and Dr. Dahl. HISTORY OF PRESENT ILLNESS: Mr. Irene is a 72-year-old male with end-stage renal disease on hemodial ysis, diabetes mellitus, hypertension, hepatitis B, left arm AV fistula, and ataxic gait, who initial ly presented from his primary physician's office for generalized weakness. The patient underwent EKG and had a mildly positive troponin. The patient was recommended to be admitted but signed out again st medical advice. The patient then had outpatient labs that returned positive for elevated potassiu m, was sent back and is now admitted to the floor. Initially upon arrival, temperature 99, blood pre ssure 180/82, pulse 91, respirations 18, saturating 99%. The patient's labs showed sodium of 136, po tassium 6.3, creatinine 11.1, BUN 88. Troponin positive 0.138. White blood cell count 7, hemoglobin 9.1, platelet count 207. The patient had a chest x-ray revealing no evidence of acute cardiopulmona ry abnormality, mild cardiomegaly, and calcified atherosclerosis of thoracic aorta. The patient's el ectrocardiogram revealed normal sinus rhythm with rate of 88, normal axis, normal intervals, isolated T-wave flattening in aVL, and borderline anterior R-wave progression. The patient subsequently has been admitted to the floor and since in the floor, the patient had troponins trended, now trending ne gative. The patient, upon questioning multiple times, denies chest pain. PAST MEDICAL HISTORY: As above in HPI. CURRENT MEDICATIONS IN THE HOSPITAL: 1. Combigan eyedrops. 2. Carvedilol 6.25 mg p.o. b.i.d. 3. Cymbalta. 4. Pepcid. 5. Lovenox 40 mg subcutaneous daily. 6. Aspirin 81 mg daily. 7. Insulin sliding scale. 8. Hydralazine p.r.n. 9. Tramadol p.r.n. 10. Tylenol p.r.n. 11. Milk of magnesia p.r.n. 12. Ambien p.r.n. 13. Dulcolax p.r.n. ALLERGIES: IODINE. SOCIAL HISTORY: No current tobacco, ETOH or illicit drug use. FAMILY HISTORY: No history of sudden cardiac or early CAD. REVIEW OF SYSTEMS: As above in HPI. CONSTITUTIONAL: No fevers or chills. PULMONARY: No current shortness of breath. CARDIOVASCULAR: No current chest pain. GASTROINTESTINAL: No vomiting. GENITOURINARY: End-stage renal disease. PSYCHIATRIC: No documented psych history. NEUROLOGIC: No documented history of CVA. ENDOCRINE: Diabetes mellitus. PHYSICAL EXAMINATION: VITAL SIGNS: Temperature 98.5, blood pressure 170/77, pulse 77, respiratory rate 17, sat 98%. GENERAL: The patient is alert, awake, in no acute distress. NECK: JVP approximately 8 to 9 cm water. CHEST: Fair air movement throughout. HEART: Regular rate and rhythm, normal S1 and S2, I/ systolic murmur. ABDOMEN: Positive bowel sounds, soft. EXTREMITIES: Trace edema; 1+ pulses bilaterally, posterior tibial. LABORATORY DATA: As above in HPI with most recently from today, sodium 139, potassium 4.1, creatinin e 7.4, BUN 48. Hemoglobin A1c of 6.9. Calcium 10.2. White blood cell count 4.8, hemoglobin 9.6, pl atelet count 225. IMAGING STUDIES: As above in HPI. No further imaging studies for my review at this time. ECG: As above in HPI. No further electrocardiograms for my review at this time. IMPRESSION: 1. Positive troponin in the setting of end-stage renal disease, assess significance. 2. Hypertension, uncontrolled. 3. Dyslipidemia. 4. Diabetes mellitus. 5. End-stage renal disease, on hemodialysis. 6. Generalized weakness on presentation. 7. Anemia. RECOMMENDATIONS: 1. At this time, I would maintain patient on telemetry monitoring to follow rhythm and rate control closely. 2. I would continue the patient's baseline carvedilol with up titration as necessary to improve over all systolic blood pressure control and likely add additional antihypertensives and thus, we will sta rt hydralazine to improve overall systolic blood pressure control. 3. Check a 2D echo for this patient's ejection fraction and wall motion, to rule any major abnormali ties. 4. Continue to trend the patient's cardiac enzymes to assess for any significant ongoing cardiac dam age. 5. Continue patient's aspirin at this time for further prophylaxis against cardiovascular events. G iven the patient's renal disease, consider change Lovenox to heparin subcutaneous for DVT prophylaxis . 6. Check a fasting lipid panel for general risk stratification and initiate lipid-lowering medicatio n as necessary. 7. Check a 2D echo for this patient's ejection fraction, wall motion and major abnormalities. 8. If patient's troponins continued to reveal no significant uptrend or even continued to trend nega tive, then we will consider a Lexiscan stress test in a.m. to assess significance of initially positi ve troponin. Thank you for allowing me to take part in the care of this patient. I will continue to follow very c losely with you with recommendations to be made as the patient progresses through his inpatient [facility] clinical course. Dictated By: MY PATEL/EDEL Conf#: [id number] DID#: [id number] CC: DR. AVINA; DAWOOD DAHL MD;*EndCC*
[2018-10-11] MEDS: INSULIN ASPART [NOVOLOG] 3 ML PEN SC SCH ×3 (07:53→17:23)
[2018-10-11] MEDS: DULOXETINE 20 MG CAP DR PO SCH (08:40)
[2018-10-11] MEDS: BRIMONIDINE 0.2%-TIMOLOL 0.5% 5ML OPH BOTH EYES SCH (08:40)
[2018-10-11] MEDS: FAMOTIDINE 20 MG TAB PO SCH (08:41)
[2018-10-11] MEDS: ASPIRIN (EC) 81 MG TAB PO SCH (08:41)
[2018-10-11] MEDS: POLYSACCHARIDE IRON COMPLEX CAP PO SCH (08:41)
--- NOTE | 2018-10-11 10:45 | PN ---
Date/Time of Note Date/Time of Note DATE: 10/11/18 TIME: 10:44 Assessment/Plan VTE Prophylaxis Risk score (from Ns)>0 risk: 3 SCD applied (from Ns): No SCD contraindicated: low risk/ambulating Pharmacological prophylaxis: LMWH Lines/Catheters IV Catheter Type (from [facility]): permacath Urinary Cath still in place: No Assessment/Plan Hospital Course 1. Chest pain, r/o coronary syndrome. trop. are negative. 2. ESRD on HD 3. Hypertension 4. DM type II 5. Insomnia 6. S/p pelvis reconstruction 1994 7. S/p left arm AV fistula, immature 8. Obesity 9. Anemia 10. walking difficulties 11. hepatitis B Assessment/Plan -telemetry service -cardiology consult dr Rogers -stress test is pending -c/w HD -DVT prophylaxis Lovenox GI prophylaxis Famotidine -c/w iron supplements. -fall precaution Result Diagram: 10/11/18 0510/11/18 0526 Results 24hrs Laboratory Tests Test 10/10/18 11:56 10/10/18 17:10 10/10/18 20:58 10/11/18 05:26 Bedside Glucose 244 H 204 136 White Blood Count 5.0 Red Blood Count 2.83 L Hemoglobin 9.2 L Hematocrit 28.5 L Mean Corpuscular Volume 100.7 Mean Corpuscular 32.5 Hemoglobin Mean Corpuscular 32.3 Hemoglobin Concent Red Cell Distribution 14.4 Width Platelet Count 235 Mean Platelet Volume 10.9 H Immature Granulocytes % 1.000 H Neutrophils % 68.4 Lymphocytes % 12.3 L Monocytes % 14.3 H Eosinophils % 3.4 Basophils % 0.6 Nucleated Red Blood 0.0 Cells % Immature Granulocytes # 0.050 H Neutrophils # 3.4 Lymphocytes # 0.6 L Monocytes # 0.7 Eosinophils # 0.2 Basophils # 0.0 Nucleated Red Blood 0.0 Cells # Sodium Level 138 Potassium Level 4.7 Chloride Level 94 L Carbon Dioxide Level 26 Anion Gap 18 H Blood Urea Nitrogen 73 H Creatinine 10.23 #H Est Glomerular Filtrat 5 L Rate mL/min Glucose Level 157 Calcium Level 9.2 Creatine Kinase 84 Creatine Kinase Index 1.8 Creatinine Kinase MB 1.47 (Mass) Troponin I 0.085 Triglycerides Level 150 H Cholesterol Level 114 LDL Cholesterol, 55 Calculated HDL Cholesterol 29 L Cholesterol/HDL Ratio 3.9 Test 10/11/18 07:52 Bedside Glucose 130 Subjective 24 Hr Interval Summary Cardiovascular: chest pain, lightheadedness; No no complaints, No edema, No orthopenea, No palpitations, No paroxysmal nocturnal dyspnea, No other Exam/Review of Systems Vital Signs Vitals Vital Signs Date Temp Pulse Resp B/P (MAP) Pulse Ox O2 O2 Flow FiO2 Time Delivery Rate 10/11/18 85 154/86 08:39 (108) 10/11/18 97.9 18 95 07:38 10/10/18 Room Air 15:11 Intake and Output 10/10/18 10/10/18 10/11/18 1515:00 23:00 07:00 IntakeIntake Total 800 ml 500 ml BalanceBalance 800 ml 500 ml Exam Constitutional: alert, oriented ENMT: nl external ears & nose Neck: supple Respiratory: clear to auscultation Cardiovascular: regular rate and rhythm Medications Medications Current Medications Brimonidine/ Timolol (Combigan Oph) 1 drop BID BOTH EYES Last administered on 10/11/18at 08:40; Admin Dose 1 DROP; Start 10/10/18 at 09:00 Duloxetine HCl (Cymbalta) 20 mg DAILY PO Last administered on 10/11/18at 08:40; Admin Dose 20 MG; Start 10/10/18 at 09:00 Hydralazine HCl (Apresoline) 50 mg Q4 PRN PO ELEVATED BLOOD PRESSURE Last administered on 10/10/18at 15:19; Admin Dose 50 MG; Start 10/10/18 at 00:00 Tramadol HCl (Ultram) 50 mg TID PRN PO PAIN; Start 10/10/18 at 00:00 IV Flush (NS 3 ml) 3 ml PER PROTOCOL IV ; Start 10/10/18 at 00:00 Ondansetron HCl (Zofran Inj) 4 mg Q6H PRN IV NAUSEA AND/OR VOMITING; Start 10/10/18 at 00:00 Acetaminophen (Tylenol Tab) 650 mg Q6H PRN PO PAIN LEVEL 1-3 OR FEVER; Start 10/10/18 at 00:00 Acetaminophen (Tylenol Supp) [address] PAIN LEVEL 1-3 OR FEVER; Start 10/10/18 at 00:00 Docusate Sodium (Colace) 100 mg Q12H PRN PO CONSTIPATION; Start 10/10/18 at 00:00 Magnesium Hydroxide (Milk Of Mag) 30 ml DAILY PRN PO CONSTIPATION; Start 10/10/18 at 00:00 Bisacodyl (Dulcolax) 5 mg DAILY PRN PO CONSTIPATION; Start 10/10/18 at 00:00 Zolpidem Tartrate (Ambien) 5 mg QHS PRN PO SLEEP; Start 10/10/18 at 00:00 Famotidine (Pepcid) 20 mg DAILY PO Last administered on 10/11/18at 08:41; Admin Dose 20 MG; Start 10/10/18 at 09:00 Enoxaparin Sodium (Lovenox) 30 mg DAILY SC Last administered on 10/10/18at 08:46; Admin Dose 30 MG; Start 10/10/18 at 09:00 Diagnostic Test (Pha) (Accu-Chek) 1 ea 02 XX Last administered on 10/10/18at 01:29; Admin Dose 1 EA; Start 10/10/18 at 02:00 Insulin Aspart (Novolog Insulin Pen) NOVOLOG *MILD* ALGORITHM WITH MEALS BEDTIME SC Last administered on 10/10/18at 17:15; Admin Dose 2 UNIT; Start 10/10/18 at 07:35 Aspirin (Halfprin) 81 mg DAILY PO Last administered on 10/11/18at 08:41; Admin Dose 81 MG; Start 10/10/18 at 09:00 Miscellaneous Information 1 ea NOTE XX ; Start 10/10/18 at 00:30 Glucose (Glutose) 15 gm Q15M PRN PO DECREASED GLUCOSE; Start 10/10/18 at 00:30 Glucose (Glutose) 22.5 gm Q15M PRN PO DECREASED GLUCOSE; Start 10/10/18 at 00:30 Dextrose (D50w Syringe) 25 ml Q15M PRN IV DECREASED GLUCOSE; Start 10/10/18 at 00:30 Dextrose (D50w Syringe) 50 ml Q15M PRN IV DECREASED GLUCOSE; Start 10/10/18 at 00:30 Glucagon (Glucagen) 1 mg Q15M PRN IM DECREASED GLUCOSE; Start 10/10/18 at 00:30 Glucose (Glutose) 15 gm Q15M PRN BUCCAL DECREASED GLUCOSE; Start 10/10/18 at 00:30 Polysaccharide Iron Complex (Niferex-150) 1 cap BID PO Last administered on 10/11/18 08:41; Admin Dose 1 CAP; Start 10/10/18 at 13:30 Carvedilol (Coreg) 12.5 mg BID PO Last administered on 10/11/18at 08:41; Admin Dose 12.5 MG; Start 10/10/18 at 21:00 Nitroglycerin (Nitroglycerin (Sl Tab) 0.4 Mg) 1 tab Q5M PRN SL ANGINA; Start 10/10/18 at 19:30 Hydralazine HCl (Apresoline) 25 mg Q8 PO Last administered on 10/11/18at 06:52; Admin Dose 25 MG; Start 10/10/18 at 22:00 FAIZA NUNO Oct 11, 2018 10:45
[2018-10-11] MEDS ORDERED: REGADENOSON 0.4 MG/5 ML SYG ONE (12:42)
--- NOTE | 2018-10-11 12:57 | CONS ---
Date/Time of Note Date/Time of Note DATE: 10/11/18 TIME: 12:55 Assessment/Plan Assessment/Plan Assessment/Plan 1. Positive troponin in the setting of end-stage renal disease, assess significance- plan for Stress test today. 2. Hypertension, uncontrolled - will resume meds s/p stress test. 3. Dyslipidemia. 4. Diabetes mellitus- on meds, keep euglycemic. 5. End-stage renal disease, on hemodialysis - renal team follows. 6. Generalized weakness on presentation - better today. 7. Anemia - of chronic diseases. Result Diagram: 10/11/1826 10/11/1826 Results 24hrs Laboratory Tests Test 10/10/18 17:10 10/10/18 20:58 10/11/18 05:26 10/11/18 07:52 Bedside Glucose 204 136 130 White Blood Count 5.0 Red Blood Count 2.83 L Hemoglobin 9.2 L Hematocrit 28.5 L Mean Corpuscular Volume 100.7 Mean Corpuscular 32.5 Hemoglobin Mean Corpuscular 32.3 Hemoglobin Concent Red Cell Distribution 14.4 Width Platelet Count 235 Mean Platelet Volume 10.9 H Immature Granulocytes % 1.000 H Neutrophils % 68.4 Lymphocytes % 12.3 L Monocytes % 14.3 H Eosinophils % 3.4 Basophils % 0.6 Nucleated Red Blood 0.0 Cells % Immature Granulocytes # 0.050 H Neutrophils # 3.4 Lymphocytes # 0.6 L Monocytes # 0.7 Eosinophils # 0.2 Basophils # 0.0 Nucleated Red Blood 0.0 Cells # Sodium Level 138 Potassium Level 4.7 Chloride Level 94 L Carbon Dioxide Level 26 Anion Gap 18 H Blood Urea Nitrogen 73 H Creatinine 10.23 #H Est Glomerular Filtrat 5 L Rate mL/min Glucose Level 157 Calcium Level 9.2 Creatine Kinase 84 Creatine Kinase Index 1.8 Creatinine Kinase MB 1.47 (Mass) Troponin I 0.085 Triglycerides Level 150 H Cholesterol Level 114 LDL Cholesterol, 55 Calculated HDL Cholesterol 29 L Cholesterol/HDL Ratio 3.9 Test 10/11/18 12:02 Bedside Glucose 136 Consultation Date/Type/Reason Admit Date/Time Oct 09, 2018 at 23:39 Initial Consult Date 24 HR Interval Summary Free Text/Dictation plan for Stress test today. ROS: No fever, no chills, no nausea, no vomiting, no diarrhea/constipation No recent weight changes No chest pain, no PND, no orthopnea + sob No dizziness, blurred vision No thirst, no heat or cold intolerance Exam/Review of Systems Vital Signs Vitals Vital Signs Date Temp Pulse Resp B/P (MAP) Pulse Ox O2 O2 Flow FiO2 Time Delivery Rate 10/11/18 73 12:00 10/11/18 98.0 19 155/74 100 11:43 (101) 10/10/18 Room Air 15:11 Intake and Output 10/10/18 10/10/18 10/11/18 1515:00 23:00 07:00 IntakeIntake Total 800 ml 500 ml BalanceBalance 800 ml 500 ml Exam General: WN/WD/NAD, AOx 3 kazakh HEENT: Unicetric/atraumatic/EOMI (follow commands) NECK: JVD elevated, no thyromegaly Lymph: no lymphadenopathy HEART: regular with no S3, II/ systolic murmur at apex LUNGS: Coarse sounds ABD: soft, NT, ND, +BS : Intact Neuro: non focal SKIN: chronic changes EXT: trace edema Medications Medications Current Medications Brimonidine/ Timolol (Combigan Oph) 1 drop BID BOTH EYES Last administered on 10/11/18at 08:40; Admin Dose 1 DROP; Start 10/10/18 at 09:00 Duloxetine HCl (Cymbalta) 20 mg DAILY PO Last administered on 10/11/18at 08:40; Admin Dose 20 MG; Start 10/10/18 at 09:00 Hydralazine HCl (Apresoline) 50 mg Q4 PRN PO ELEVATED BLOOD PRESSURE Last adm inistered on 10/10/18at 15:19; Admin Dose 50 MG; Start 10/10/18 at 00:00 Tramadol HCl (Ultram) 50 mg TID PRN PO PAIN; Start 10/10/18 at 00:00 IV Flush (NS 3 ml) 3 ml PER PROTOCOL IV ; Start 10/10/18 at 00:00 Ondansetron HCl (Zofran Inj) 4 mg Q6H PRN IV NAUSEA AND/OR VOMITING; Start 10/10/18 at 00:00 Acetaminophen (Tylenol Tab) 650 mg Q6H PRN PO PAIN LEVEL 1-3 OR FEVER; Start 10/10/18 at 00:00 Acetaminophen (Tylenol Supp) 650 mg Q6H PRN [place] PAIN LEVEL 1-3 OR FEVER; Start 10/10/18 at 00:00 Docusate Sodium (Colace) 100 mg Q12H PRN PO CONSTIPATION; Start 10/10/18 at 00:00 Magnesium Hydroxide (Milk Of Mag) 30 ml DAILY PRN PO CONSTIPATION; Start 10/10/18 at 00:00 Bisacodyl (Dulcolax) 5 mg DAILY PRN PO CONSTIPATION; Start 10/10/18 at 00:00 Zolpidem Tartrate (Ambien) 5 mg QHS PRN PO SLEEP; Start 10/10/18 at 00:00 Famotidine (Pepcid) 20 mg DAILY PO Last administered on 10/11/18at 08:41; Admin Dose 20 MG; Start 10/10/18 at 09:00 Enoxaparin Sodium (Lovenox) 30 mg DAILY SC Last administered on 10/10/18at 08:46; Admin Dose 30 MG; Start 10/10/18 at 09:00 Diagnostic Test (Pha) (Accu-Chek) 1 ea 02 XX Last administered on 10/10/18at 01:29; Admin Dose 1 EA; Start 10/10/18 at 02:00 Insulin Aspart (Novolog Insulin Pen) NOVOLOG *MILD* ALGORITHM WITH MEALS BEDTIME SC Last administered on 10/10/18at 17:15; Admin Dose 2 UNIT; Start 10/10/18 at 07:35 Aspirin (Halfprin) 81 mg DAILY PO Last administered on 10/11/18at 08:41; Admin Dose 81 MG; Start 10/10/18 at 09:00 Miscellaneous Information 1 ea NOTE XX ; Start 10/10/18 at 00:30 Glucose (Glutose) 15 gm Q15M PRN PO DECREASED GLUCOSE; Start 10/10/18 at 00:30 Glucose (Glutose) 22.5 gm Q15M PRN PO DECREASED GLUCOSE; Start 10/10/18 at 00:30 Dextrose (D50w Syringe) 25 ml Q15M PRN IV DECREASED GLUCOSE; Start 10/10/18 at 00:30 Dextrose (D50w Syringe) 50 ml Q15M PRN IV DECREASED GLUCOSE; Start 10/10/18 at 00:30 Glucagon (Glucagen) 1 mg Q15M PRN IM DECREASED GLUCOSE; Start 10/10/18 at 00:30 Glucose (Glutose) 15 gm Q15M PRN BUCCAL DECREASED GLUCOSE; Start 10/10/18 at 00:30 Polysaccharide Iron Complex (Niferex-150) 1 cap BID PO Last administered on 10/11/18at 08:41; Admin Dose 1 CAP; Start 10/10/18 at 13:30 Carvedilol (Coreg) 12.5 mg BID PO Last administered on 10/11/18at 08:41; Admin Dose 12.5 MG; Start 10/10/18 at 21:00 Nitroglycerin (Nitroglycerin (Sl Tab) 0.4 Mg) 1 tab Q5M PRN SL ANGINA; Start 10/10/18 at 19:30 Hydralazine HCl (Apresoline) 25 mg Q8 PO Last administered on 10/11/18at 06:52; Admin Dose 25 MG; Start 10/10/18 at 22:00 DA GUILLERMO MD Oct 11, 2018 12:57
[2018-10-11] MEDS: ENOXAPARIN 30 MG/0.3 ML SYG SC SCH (15:52)
--- NOTE | 2018-10-11 17:31 | PDOCDIS ---
Discharge Instructions CONDITION [id number] Patient Condition: [id number] Stable HOME CARE INSTRUCTIONS: [id number] Special Diet: Nyogx6o RENAL DIET ACTIVITY: [id number] Activity Restrictions: [id number] Slowly Increase Activity FOLLOW UP/APPOINTMENTS Follow-up Plan f/u pcp [address] camara [address] dahl 2 wks DAWOOD DAHL MD Oct 11, 2018 17:31
[2018-10-11] MEDS ORDERED: ASPI-1044 PO (17:41)
[2018-10-11] MEDS ORDERED: Accu-Chek XX (17:41)
[2018-10-11] MEDS ORDERED: BISA5TAB6 PO (17:41)
[2018-10-11] MEDS ORDERED: DOCU-216 PO (17:41)
[2018-10-11] MEDS ORDERED: NIF150 PO (17:41)
[2018-10-11] MEDS ORDERED: CARV12.579 PO (17:41)
[2018-10-11] MEDS ORDERED: NITR0.4T32 SL (17:41)
--- NOTE | 2018-10-11 20:33 | ECORPT ---
DATE OF SERVICE: REFERRING PHYSICIAN: Jose Dahl MD REASON FOR TEST: Chest pain. DESCRIPTION OF THE TEST: The patient was brought into the heart station in fasting condition. Blood pressure is 175/65. Heart rate was in the 60s and he had some nonspecific ST-T changes on the EKG. He tolerated the injection well. The imaging portion will be dictated separately. Dictated By: AD GUILLERMO MD ML/NTS Conf#: [id number] DID#: [id number] CC: JOSE DAHL MD;*EndCC*
--- NOTE | 2018-10-12 17:43 | QN ---
Documentation Comment [id number] DAWOOD DAHL MD Oct 12, 2018 17:43
--- NOTE | 2018-10-12 18:55 | DS ---
DATE OF ADMISSION: 10/09/2018 DATE OF DISCHARGE: 10/11/2018 HOSPITAL COURSE: The patient was admitted with hyperkalemia drawn as an outpatient. Also has a positive troponin. He left against medical advice from this hospital on Saturday. The patient came back and patient was seen by Dr. Rogers in consultation and underwent Lexiscan. The patient's Lexiscan shows the patient has been small nonreversible perfusion defect in the inferior , basal and lateral basal segment without definitive evidence of reversible ischemia, normal wall motion with normal ejection fraction of 52%. Hemodialysis was done. The patient is stable, cleared to be discharged home. DISCHARGE DIAGNOSES: Include: 1. Hyperkalemia. 2. Positive troponin. 3. End-stage renal disease. 4. Hypertension. 5. Diabetes mellitus. 6. History of diabetic retinopathy and surgery. 7. Electrolyte imbalance. 8. Anemia. TESTS DONE: Hemodialysis and Lexiscan. DISCHARGE MEDICATIONS: To continue on: 1. Accu-Chek. 2. Aspirin. 3. Bisacodyl. 4. Coreg. 5. Docusate sodium. 6. Nitroglycerin. 7. Polysaccharide. 8. Combigan. 9. Cymbalta. 10. Omeprazole. 11. Amaryl. 12. Hydralazine. 13. Rosuvastatin. 14. Tramadol. FOLLOWUP: The patient is to follow up as an outpatient with Dr. Rogers, Dr. Dahl and patient's primary care doctor as an outpatient. Dictated By: DAWOOD DAHL MD BS/NTS Conf#: [id number] DID#: [id number] CC: MY ROGERS MD;*EndCC* MTDD
--- NOTE | 2018-10-12 21:23 | RADRPT ---
Vent Rate: 71 bpm RR Interval: 0 msec [place] Interval: 178 msec QRS Duration: 98 msec QT Interval: 448 msec QTC Interval: 486 msec P-R-T [place]: 45 - 72 - 58 degrees Normal sinus rhythm Prolonged QT Abnormal ECG Electronically Signed By: Allan Lo [id number]
== END 2018-10-11 18:16 | disposition home or self-care (01) | DRG 640 ==
LOC: E/R 18:45 → ICU 23:39 → 6WM 10-10 08:25 → ICU 10-10 08:46 → 6WM 10-10 09:09
PROVIDERS: ADMIT Internal Medicine Nephrology; ATTEND Internal Medicine Nephrology
PROC: 5A1D70Z Performance of Urinary Filtration, Intermittent, Less than 6 Hours Per Day (ICD-10-PCS; principal; 2018-10-10)
DX: E87.5 Hyperkalemia (principal); N18.6 End stage renal disease; B18.1 Chronic viral hepatitis B without delta-agent; I13.2 Hypertensive heart and chronic kidney disease with heart failure and with stage 5 chronic kidney disease, or end stage renal disease; I50.9 Heart failure, unspecified; R74.8 Abnormal levels of other serum enzymes; E11.22 Type 2 diabetes mellitus with diabetic chronic kidney disease; E66.9 Obesity, unspecified; Z68.32 Body mass index [BMI] 32.0-32.9, adult; G47.00 Insomnia, unspecified; R26.2 Difficulty in walking, not elsewhere classified; Z99.2 Dependence on renal dialysis; D63.8 Anemia in other chronic diseases classified elsewhere; Z79.4 Long term (current) use of insulin
CPT/HCPCS: 36415; 71045; 78452; 80048; 80061; 82550; 82553; 82962; 83036; 84484; 85025; 86706; 87081; 87340; 90935; 93005; 93017; 93306; A9500; A9505; J1644; J1650; J1815; J2785

== ENCOUNTER 2019-06-06 19:15 | Emergency (ER) | payer MEDICARE, OTHER ==
[~2019-06-06] VITALS: Ht 175.3 cm; Wt 85.0 kg
[~2019-06-06 19:15] MED LIST changes: +ASPI-1044 PO; +Accu-Chek XX; +BISA5TAB6 PO; +CARV12.579 PO; -CARV6.2579 PO; +DOCU-216 PO; +NIF150 PO; +NITR0.4T32 SL; -ROSU10TA55 PO; +RSV10T PO
[2019-06-06 19:17] VITALS: Ht 175.3 cm; Wt 85.0 kg
[2019-06-06 22:05] VITALS: BP 138/82; PULSE 79; RESP 16
== END 2019-06-06 22:06 | disposition home or self-care (01) ==
LOC: E/R 19:15
DX: T82.838A Hemorrhage due to vascular prosthetic devices, implants and grafts, initial encounter (principal); I12.0 Hypertensive chronic kidney disease with stage 5 chronic kidney disease or end stage renal disease; N18.6 End stage renal disease; Y82.8 Other medical devices associated with adverse incidents; Z79.82 Long term (current) use of aspirin; Z79.84 Long term (current) use of oral hypoglycemic drugs; Z99.2 Dependence on renal dialysis
CPT/HCPCS: 82962; 99282

== ENCOUNTER 2019-06-23 14:26 | Emergency (ER) | payer MEDICARE, OTHER ==
[~2019-06-23] VITALS: Wt 92.6 kg
[~2019-06-23 14:26] MED LIST changes: -ASPI-1044 PO; +ASPI-1163 PO; -GLIM4TAB PO; +GLIM4TAB3 PO; +NOVO3I SC; +SEVE800T7 PO; +SUCR500T PO
[2019-06-23 14:30] VITALS: Wt 92.6 kg
[2019-06-23 19:20] VITALS: BP 134/72; PULSE 78; RESP 16
== END 2019-06-23 19:21 | disposition home or self-care (01) ==
LOC: E/R 14:26
DX: D64.9 Anemia, unspecified (principal); R94.31 Abnormal electrocardiogram [ECG] [EKG]; I12.0 Hypertensive chronic kidney disease with stage 5 chronic kidney disease or end stage renal disease; N18.6 End stage renal disease; E11.22 Type 2 diabetes mellitus with diabetic chronic kidney disease; Z99.2 Dependence on renal dialysis; Z79.82 Long term (current) use of aspirin; Z79.4 Long term (current) use of insulin
CPT/HCPCS: 71045; 80048; 82550; 82553; 84484; 85025; 93005